=== PATIENT | male | born 1965 | race Caucasian/White ===

== ENCOUNTER 2018-11-20 19:57 | Inpatient (IN) | payer MEDICARE, MEDICAID ==
[2018-11-20 20:36] LABS: % BASOPHILS 0.4 % (0.0-2.0); % EOSINOPHILS 3.5 % (0.0-5.0); % MONOCYTES 7.5 % (2.0-10.0); % NEUTROPHILS 64.6 % (40.0-80.0); EOSINOPHILE ABSOLUTE 0.3 Th/cmm (0.1-0.4); HEMATOCRIT 44.7 % (41.0-60); LYMPHOCYTE ABSOLUTE 2.2 Th/cmm (1.5-3.0); MEAN CORPUSCULAR HEMOGLOBIN 30.9 pg (26.0-30.0); MEAN CORPUSCULAR HGB CONC 33.6 pg (28.0-36.0); MEAN PLATELET VOLUME 7.6 fl; MONOCYTE ABSOLUTE 0.7 Th/cmm (0.3-1.0); PLATELET COUNT 262 Th/cmm (150-400); RED BLOOD COUNT 4.86 Mil/cmm (4.30-5.70); RED CELL DISTRIBUTION WIDTH 14.1 % (11.5-20.0); WHITE BLOOD COUNT 9.2 Th/cmm (4.8-10.8)
[2018-11-20 20:52] LABS: ACETAMINOPHEN < 10.0 ug/mL (10.0-30.0); ALB/GLOB RATIO 1.3 (1.0-1.8); ALBUMIN 3.8 gm/dL (4.2-5.5); ALKALINE PHOSPHATASE 108 U/L (34-104); ANION GAP 9.6 (7.0-16.0); BILIRUBIN,TOTAL 0.4 mg/dL (0.3-1.0); BUN - UREA NITROGEN 17 mg/dL (7-25); CALCIUM SERUM 10.7 mg/dL (8.6-10.3); CARBON DIOXIDE 28.5 mEq/L (21.0-31.0); CHLORIDE 104 mEq/L (98-107); CHOLESTEROL 170 mg/dL (<200); CREATININE - SERUM 0.9 mg/dL (0.7-1.3); GFR AFRICAN-AMERICAN > 60.0 ml/min (>90); GFR NON AFRICAN-AMERICAN > 60.0 ml/min; GLUCOSE 126 mg/dL (70-105); HDL -HIGH DENSITY LIPOPROTEIN 38 mg/dL (23-92); POTASSIUM SERUM 4.1 mEq/L (3.5-5.1); SALICYLATES (ASPIRIN) < 25.0 mg/L (30.0-100.0); SGOT 41 U/L (13-39); SGPT/ALT 83 U/L (7-52); SODIUM SERUM 138 mEq/L (136-145); TOTAL PROTEIN,SERUM 6.8 gm/dL (6.0-8.3); TRIGLYCERIDES 181 mg/dL (<150)
[2018-11-20 21:07] LABS: URINE SOURCE RANDOM
[2018-11-20 21:10] LABS: URINE BILIRUBIN NEGATIVE (NEGATIVE); URINE BLOOD NEGATIVE (NEGATIVE); URINE GLUCOSE (UA) NEGATIVE (NEGATIVE); URINE KETONE NEGATIVE (NEGATIVE); URINE LEUKOCYTE ESTERASE NEGATIVE (NEGATIVE); URINE NITRATE NEGATIVE (NEGATIVE); URINE PROTEIN NEGATIVE (NEGATIVE); URINE UROBILINOGEN 0.2 E.U./dL (0.2 - 1.0)
[2018-11-20 21:46] LABS: AMPHETAMINE URINE NEGATIVE (NEGATIVE); BARBITURATES URINE NEGATIVE (NEGATIVE); COCAINE METABOLITE QUAL URINE NEGATIVE (NEGATIVE); METHAMPHETAMINES QUAL URINE NEGATIVE (NEGATIVE); PHENCYCLIDINE (PCP) URINE NEGATIVE (NEGATIVE)
[2018-11-20 21:47] LABS: BENZODIAZEPINES QUAL URINE NEGATIVE (NEGATIVE); CANNABINOID THC NEGATIVE (NEGATIVE); METHADONE URINE NEGATIVE (NEGATIVE); OPIATES (MORPHINE) QUAL. URINE NEGATIVE (NEGATIVE); TRICYCLICS (TCA) QUAL. URINE POSITIVE (NEGATIVE)
[2018-11-20 21:58] LABS: URINE CLARITY CLEAR (CLEAR); URINE COLOR YELLOW; URINE MICROSCOPIC INDICATED? NO
--- NOTE | 2018-11-20 22:25 | ED Physician Chart ---
ED Chief Complaint/HPI - Patient Information Date Seen:: 11/20/18 Time Seen:: 20:00 Chief Complaint:: Agitation History of Present Illness:: onset x 3 days of agitation and aggressive behavior; no report of trauma, LOC, ALOC, AMS, H/As, S/T, neck pain, C/P, SOB, cough, SIs, Abd. Pain, A/N/V/D/C, fever, chills, or urinary s/s Allergies:: Allergies Allergy/AdvReac Type Severity Reaction Status Date / Time No Known Allergies Allergy Verified 11/20/18 20:05 Vitals:: Vital Signs - 8 hr 11/20/18 20:00 Temp 98.0 F HR 90 RR 16 BP 136/73 O2 Sat % 99 Historian:: Patient, EMS Review:: Nurse's Note Reviewed, Old Chart Reviewed, EMS run form Reviewed ED Review of Systems - Review of Systems General/Constitutional: No fever, No chills, No weight loss, No weakness, No diaphoresis, No edema, No loss of appetite Skin: No skin lesions, No rash, No bruising Head: No headache, No light-headedness Eyes: No loss of vision, No pain, No diplopia ENT: No earache, No nasal drainage, No sore throat, No tinnitus Neck: No neck pain, No swelling, No thyromegaly, No stiffness, No mass noted Cardio Vascular: No chest pain, No palpitations, No PND, No orthopnea, No edema Pulmonary: No SOB, No cough, No sputum, No wheezing GI: No nausea, No vomiting, No diarrhea, No pain, No melena, No hematochezia, No constipation, No hematemesis G/U: No dysuria, No frequency, No hematuria, No nacturia Musculoskeletal: No bone or joint pain, No back pain, No muscle pain Endocrine: No polyuria, No polydipsia Psychiatric: Prior psych history, Depression, Anxiety, No suicidal ideation, No homicidal ideation, Auditory hallucination, No visual hallucination Hematopoietic: No bruising, No lymphadenopathy Allergic/Immuno: No urticaria, No angioedema Neurological: No syncope, No focal symptoms, No weakness, No paresthesia, No headache, No seizure, No dizziness, No confusion, No vertigo ED Past Medical History - Past Medical History Obtainable: Yes Past Medical History: HTN, Arthritis Family History: HTN Social History: Smoker, Alcohol, Illicit Drug Use, Single, Care Facility Surgical History: other (Knee Surgery) Psychiatricy History: Schizophrenia, Bipolar Medication: Reviewed ED Physical Exam - Physical Examination General/Constitutional: Awake, Well-developed, well-nourished, Alert, No distress, GCS 15, Non-toxic appearing, Ambulatory Head: Atraumatic Eyes: Lids, conjuctiva normal, PERRL, EOMI Skin: Nl inspection, No rash, No skin lesions, No ecchymosis, Well hydrated, No lymphadenopathy ENMT: External ears, nose nl, TM canals nl, Nasal exam nl, Lips, teeth, gums nl , Oropharynx nl, Tonsils nl Neck: Nontender, Full ROM w/o pain, No JVD, No nuchal rigidity, No bruit, No mass, No stridor Respiratory: Nl effort/Exclusion, Clear to Auscultation, No Wheeze/Rhonchi/Rales Cardio Vascular: RRR, No murmur, gallop, rubs, NL S1 S2, Carotid/Femoral/Distal pulses equal bilaterally GI: No tenderness/rebounding/guarding, No organomegaly, No hernia, Normal BS's, Nondistended, No mass/bruits, No McBurney tenderness Other GI comments:: no pulsatile masses : No CVA tenderness Extremities: No tenderness or effusion, Full ROM, normal strength in all extremities, No edema, Normal digits & nails Neuro/Psych: Alert/oriented, DTR's symmetric, Normal sensory exam, Normal motor strength, Judgement/insight normal, Mood normal, Normal gait, No focal deficits Other Neuro/Psych comments:: + Psychomotor Agitation; no SIs; Mood/Affect: Labile Misc: Normal back, No paraspinal tenderness ED Labs/Radiology/EKG Results - Lab Results Results: Laboratory Tests 11/20/18 11/20/18 11/20/18 20:26 20:26 20:26 WBC 9.2 RBC 4.86 Hgb 15.0 Hct 44.7 MCV 92.0 MCH 30.9 H MCHC Differential 33.6 RDW 14.1 Plt Count 262 MPV 7.6 Neutrophils % 64.6 Lymphocytes % 24.0 Monocytes % 7.5 Eosinophils % 3.5 Basophils % 0.4 Sodium 138 Potassium 4.1 Chloride 104 Carbon Dioxide 28.5 Anion Gap 9.6 BUN 17 Creatinine 0.9 Est GFR ( Amer) > 60.0 Est GFR (Non-Af Amer) > 60.0 BUN/Creatinine Ratio 18.9 Glucose 126 H Calcium 10.7 H Total Bilirubin 0.4 AST 41 H ALT 83 H Alkaline Phosphatase 108 H Troponin I Total Protein 6.8 Albumin 3.8 L Globulin 3.0 Albumin/Globulin Ratio 1.3 Triglycerides 181 H Cholesterol 170 LDL Cholesterol Direct 124 HDL Cholesterol 38 TSH 2.21 Urine Source Urine Color Urine Clarity Urine pH Ur Specific [place] Urine Protein Urine Glucose (UA) Urine Ketones Urine Blood Urine Nitrate Urine Bilirubin Urine Urobilinogen Ur Leukocyte Esterase Salicylates < 25.0 L Urine Opiates Screen Urine Methadone Screen Acetaminophen < 10.0 L Ur Barbiturates Screen Ur Tricyclics Screen Ur Phencyclidine Scrn Amphetamines Screen U Methamphetamines Scrn U Benzodiazepines Scrn U Cocaine Metab Screen U Cannabinoids Screen Ethyl Alcohol < 10 11/20/18 11/20/18 11/20/18 20:26 21:00 21:00 WBC RBC Hgb Hct MCV MCH MCHC Differential RDW Plt Count MPV Neutrophils % Lymphocytes % Monocytes % Eosinophils % Basophils % Sodium Potassium Chloride Carbon Dioxide Anion Gap BUN Creatinine Est GFR ( Amer) Est GFR (Non-Af Amer) BUN/Creatinine Ratio Glucose Calcium Total Bilirubin AST ALT Alkaline Phosphatase Troponin I 0.01 Total Protein Albumin Globulin Albumin/Globulin Ratio Triglycerides Cholesterol LDL Cholesterol Direct HDL Cholesterol TSH Urine Source RANDOM Urine Color YELLOW Urine Clarity CLEAR Urine pH 7.0 Ur Specific [place] 1.015 Urine Protein NEGATIVE Urine Glucose (UA) NEGATIVE Urine Ketones NEGATIVE Urine Blood NEGATIVE Urine Nitrate NEGATIVE Urine Bilirubin NEGATIVE Urine Urobilinogen 0.2 Ur Leukocyte Esterase NEGATIVE Salicylates Urine Opiates Screen NEGATIVE Urine Methadone Screen NEGATIVE Acetaminophen Ur Barbiturates Screen NEGATIVE Ur Tricyclics Screen POSITIVE H Ur Phencyclidine Scrn NEGATIVE Amphetamines Screen NEGATIVE U Methamphetamines Scrn NEGATIVE U Benzodiazepines Scrn NEGATIVE U Cocaine Metab Screen NEGATIVE U Cannabinoids Screen NEGATIVE Ethyl Alcohol Comments:: Reviewed - EKG Interpretations EKG Time:: 20:59 Rate & Rhythm: 96; NSR Comments:: non-specific st-t changes ED Septic Shock - . Is Septic Shock (SBP<90, OR Lactate>4 mmol\L) present?: No - <6hrs of presentation: Vital Signs: Vital Signs - 8 hr 11/20/18 20:00 Temp 98.0 F HR 90 RR 16 BP 136/73 O2 Sat % 99 ED Reassessment (Disposition) - Reassessment Reassessment Condition:: Improved - Diagnosis Diagnosis:: Agitation; Medical Clearance; Psychosis; Depression; Bipolar Disorder; Schizophrenia; Schizo-Affective Disorder - Aftercare/Follow up Instructions Aftercare/Follow-Up Instructions:: Counseled pt regarding lab results/diagnosis & need follow up, Counseled pt & family regarding lab results/diagnosis & need follow up - Patient Disposition Discharge/Transfer:: Acute Care w/in this hosp Admitted to:: [facility] Condition at Disposition:: Stable, Improved
[2018-11-20 22:40] VITALS: BP 132/92
[2018-11-20] MEDS ORDERED: Maalox 30 mL Cup PO PRN (22:45)
[2018-11-20] MEDS ORDERED: Magnesium Hydroxide (MOM) 30 mL UDC PO PRN (22:45)
[2018-11-20] MEDS ORDERED: LITHIUM CARBONATE 600 MG PO SCH (23:45)
[2018-11-20] MEDS ORDERED: Ipratropium Neb 0.5 mg/2.5 mL UD HHN PRN (23:50)
[2018-11-20] MEDS ORDERED: Albuterol Nebulizer 2.5mg/3mL HHN PRN (23:50)
[2018-11-20] MEDS ORDERED: guaiFENesin 200 MG/10 ML UDC PO PRN (23:50)
[2018-11-21] MEDS ORDERED: LITHIUM CARBONATE 600 MG PO SCH (09:00)
--- NOTE | 2018-11-21 12:13 | Psychiatric Evaluation ---
DATE OF SERVICE: 11/20/2018 IDENTIFYING DATA: The patient is a 53-year-old male, a resident of [facility]. Information was obtained by directly interviewing the patient as well as reviewing the admission papers and they are reliable. JUSTIFICATION OF HOSPITALIZATION: The patient is admitted over here for acute psychosis and agitation. CHIEF COMPLAINT: "I need to go back to [facility]." HISTORY OF PRESENT ILLNESS: This is the one of multiple psychiatric hospitalizations for this patient who is reported to have been recently hospitalized at [facility]. The patient is reported to have been having mood swings and psychiatric problems for the past 20 plus years. The patient on the day of the hospitalization has been reported to have been screaming and yelling and has been very disorganized and is also reported to be getting agitated and could not be contained, and hence, the patient has to be referred over here. PAST PSYCHIATRIC HISTORY: The patient is reported to have been hospitalized at [facility] recently. MEDICAL HISTORY AND PHYSICAL EXAMINATION: Requested to be done by Dr. Lloyd. Significant for bilateral ____ placement and history of back pain. SUBSTANCE ABUSE HISTORY: None. PHYSICAL OR SEXUAL ABUSE HISTORY: None. LEGAL PROBLEMS: None at this time. CURRENT MEDICATIONS: Include lithium and Seroquel. SOCIAL HISTORY: The patient is a resident of the [facility] facility, [facility]. STRENGTH AND ASSETS: The patient is motivated. MENTAL STATUS EXAMINATION: The patient is 53 years old, looking his stated age, superficially cooperative. Eye contact is poor. Mood is noted to be irritable. Affect is constricted. The patient is alert and oriented to time, place and person. The patient's short-term memory is noted to be intact. The patient's long-term memory is also noted to be intact. The patient is able to give his date of and the place where he has been staying at. The patient however has been getting easily agitated when I am asking these questions. The patient has paranoia, but denies any command hallucinations at this time. The patient is downplaying his reason for being hospitalized. The patient's behavior is a clear danger to self and others. DIAGNOSTIC IMPRESSION: AXIS I: Schizoaffective disorder. History of marijuana abuse. AXIS II: None. AXIS III: As per Dr. Lloyd. IMMEDIATE TREATMENT PLAN: The patient is going to be observed on inpatient unit. Provided with supportive psychotherapy. The patient is going to be closely monitored. Encouraged to verbalize the concerns. The patient is going to be continued on Seroquel and lithium carbonate. ESTIMATED LENGTH OF STAY: 3-5 days. DISCHARGE CRITERIA: When he no longer a threat to self or others and be able to cope up with the stress. JOB# [id number]
--- NOTE | 2018-11-21 16:35 | History & Physical ---
ADMIT DATE: 11/21/2018 CHIEF COMPLAINT: Admitted for inpatient psych. HISTORY OF PRESENT ILLNESS: This is a 53-year-old male, history of chronic low back pain, osteoarthritis, psych disorder, admitted from nursing facility under the service of Dr. Ceballos. The patient complains of back pain and leg pain. PAST MEDICAL HISTORY: As mentioned in history present illness. PAST SURGICAL HISTORY: Denies surgeries in the past. ALLERGIES: No known drug allergies. MEDICATIONS: The patient is on lithium and Seroquel. FAMILY HISTORY: Denies diabetes or coronary artery disease. SOCIAL HISTORY: Smokes on occasions, drinks on occasion. He is a smoker. 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 Single with one child. REVIEW OF SYSTEMS: GENERAL: Complains not feeling well, complains of pain. HEAD, EYES, EARS, NOSE, AND THROAT: No blurred vision. LUNGS: No diagnosis of COPD or asthma. HEART: Denies hypertension or coronary artery disease. ABDOMEN: No nausea, vomiting, pain. GENITOURINARY: The patient denies any increased dysuria. NEUROLOGIC: No headache, seizure or syncope. EXTREMITIES: Have low back pain. PHYSICAL EXAMINATION: VITAL SIGNS: Blood pressure 124/81, respiration 20, pulse 79, and temperature 98.1. GENERAL: Mildly obese middle-aged male, in no acute distress, in a wheelchair. NECK: Supple. No mass. LUNGS: Equal breath sounds, otherwise clear to auscultation. HEART: Regular rate and rhythm without appreciable murmurs. ABDOMEN: Soft, nontender. Positive bowel sounds. ____ LABORATORY DATA: Showed WBC 9, hemoglobin 15, platelets 262. Sodium 138, potassium 4.1, BUN 74, creatinine 0.9, blood sugar 126, AST and ALT 41 and 83 respectively. Alkaline phosphatase 108. Albumin 3.8, triglyceride 181. Positive tricyclics. ASSESSMENT AND PLAN: 1. Hyperglycemia. Liver function tests, hypercalcemia, low back pain, chronic pain syndrome, osteoarthritis, psych disorder. 2. Obesity. We will continue the on Neurontin. We will treat the patient with nonsteroidal anti-inflammatory drugs, we will try to avoid narcotic medication, the patient insisting, we will see if it is okay with Psychiatry. We will continue to monitor the patient closely. JOB# [id number]
[2018-11-21] MEDS: Hydrocodone/APAP 5mg/325mg Tab PO PRN (23:39)
--- NOTE | 2018-11-22 13:14 | Internal Medicine Prog Note ---
Internal Medicine Subjective - Subjective Patient seen and examined:: with staff, chart reviewed Patient is:: awake, verbal, interactive, in wheelchair Patient Complaints of:: LBP, unable to sleep Per staff patient has:: no adverse event, no episodes of fall, agitated, tolerating meds Internal Medicine Objective - Results Result Diagrams: 11/20/18 20:26 11/20/18 20:26 Recent Labs: Laboratory Last Values WBC 9.2 Th/cmm (4.8-10.8) 11/20/18 20: RBC 4.86 Mil/cmm (4.30-5.70) 11/20/18 20:26 Hgb 15.0 gm/dL (12-16) 11/20/18 20: Hct 44.7 % (41.0-60) 11/20/18 20: MCV 92.0 fl (80-99) 11/20/18 20: MCH 30.9 pg (26.0-30.0) H 11/20/18 20: MCHC Differential 33.6 pg (28.0-36.0) 11/20/18 20: RDW 14.1 % (11.5-20.0) 11/20/18 20: Plt Count 262 Th/cmm (150-400) 11/20/18 20: MPV 7.6 fl 11/20/18 20: Neutrophils % 64.6 % (40.0-80.0) 11/20/18 20: Lymphocytes % 24.0 % (20.0-50.0) 11/20/18 20: Monocytes % 7.5 % (2.0-10.0) 11/20/18 20: Eosinophils % 3.5 % (0.0-5.0) 11/20/18 20: Basophils % 0.4 % (0.0-2.0) 11/20/18 20:26 Sodium 138 mEq/L (136-145) 11/20/18 20:26 Potassium 4.1 mEq/L (3.5-5.1) 11/20/18 20: Chloride 104 mEq/L (98-107) 11/20/18 20: Carbon Dioxide 28.5 mEq/L (21.0-31.0) 11/20/18 20:26 Anion Gap 9.6 (7.0-16.0) 11/20/18 20:26 BUN 17 mg/dL (7-25) 11/20/18 20:26 Creatinine 0.9 mg/dL (0.7-1.3) 11/20/18 20:26 Est GFR ( Amer) > 60.0 ml/min (>90) 11/20/18 20:26 Est GFR (Non-Af Amer) > 60.0 ml/min 11/20/18 20:26 BUN/Creatinine Ratio 18.9 11/20/18 20:26 Glucose 126 mg/dL (70-105) H 11/20/18 20:26 Calcium 10.7 mg/dL (8.6-10.3) H 11/20/18 20:26 Total Bilirubin 0.4 mg/dL (0.3-1.0) 11/20/18 20:26 AST 41 U/L (13-39) H 11/20/18 20:26 ALT 83 U/L (7-52) H 11/20/18 20:26 Alkaline Phosphatase 108 U/L (34-104) H 11/20/18 20:26 Troponin I 0.01 ng/mL (0.01-0.05) 11/20/18 20:26 Total Protein 6.8 gm/dL (6.0-8.3) 11/20/18 20:26 Albumin 3.8 gm/dL (4.2-5.5) L 11/20/18 20:26 Globulin 3.0 gm/dL 11/20/18 20:26 Albumin/Globulin Ratio 1.3 (1.0-1.8) 11/20/18 20:26 Triglycerides 181 mg/dL (<150) H 11/20/18 20:26 Cholesterol 170 mg/dL (<200) 11/20/18 20:26 LDL Cholesterol Direct 124 mg/dL (75-193) 11/20/18 20:26 HDL Cholesterol 38 mg/dL (23-92) 11/20/18 20:26 TSH 2.21 uIU/ml (0.34-5.60) 11/20/18 20:26 Urine Source RANDOM 11/20/18 21:00 Urine Color YELLOW 11/20/18 21:00 Urine Clarity CLEAR (CLEAR) 11/20/18 21:00 Urine pH 7.0 (4.6 - 8.0) 11/20/18 21:00 Ur Specific [place] 1.015 (1.005-1.030) 11/20/18 21:00 Urine Protein NEGATIVE mg/dL (NEGATIVE) 11/20/18 21:00 Urine Glucose (UA) NEGATIVE mg/dL (NEGATIVE) 11/20/18 21:00 Urine Ketones NEGATIVE mg/dL (NEGATIVE) 11/20/18 21:00 Urine Blood NEGATIVE (NEGATIVE) 11/20/18 21:00 Urine Nitrate NEGATIVE (NEGATIVE) 11/20/18 21:00 Urine Bilirubin NEGATIVE (NEGATIVE) 11/20/18 21:00 Urine Urobilinogen 0.2 E.U./dL (0.2 - 1.0) 11/20/18 21:00 Ur Leukocyte Esterase NEGATIVE (NEGATIVE) 11/20/18 21:00 Salicylates < 25.0 mg/L (30.0-100.0) L 11/20/18 20:26 Urine Opiates Screen NEGATIVE (NEGATIVE) 11/20/18 21:00 Urine Methadone Screen NEGATIVE (NEGATIVE) 11/20/18 21:00 Acetaminophen < 10.0 ug/mL (10.0-30.0) L 11/20/18 20:26 Ur Barbiturates Screen NEGATIVE (NEGATIVE) 11/20/18 21:00 Ur Tricyclics Screen POSITIVE (NEGATIVE) H 11/20/18 21:00 Ur Phencyclidine Scrn NEGATIVE (NEGATIVE) 11/20/18 21:00 Amphetamines Screen NEGATIVE (NEGATIVE) 11/20/18 21:00 U Methamphetamines Scrn NEGATIVE (NEGATIVE) 11/20/18 21:00 U Benzodiazepines Scrn NEGATIVE (NEGATIVE) 11/20/18 21:00 U Cocaine Metab Screen NEGATIVE (NEGATIVE) 11/20/18 21:00 U Cannabinoids Screen NEGATIVE (NEGATIVE) 11/20/18 21:00 Ethyl Alcohol < 10 mg/dL (0-10) 11/20/18 20:26 RPR NONREACTIVE (NONREACTIVE) 11/20/18 20:26 - Physical Exam Vitals and I&O: Vital Signs Temp 98.2 F 11/22/18 06:31 Pulse 89 11/22/18 07:27 Resp 20 11/22/18 07:27 BP 110/66 11/22/18 06:31 Pulse Ox 96 11/22/18 07:27 Intake & Output 11/21/18 11/22/18 11/22/18 18:59 06:59 18:59 Intake Total 900 120 Balance 900 120 Intake: Oral 900 120 Other: # Voids 3 3 # Bowel Movements 1 Active Medications: Current Medications Acetaminophen (Tylenol) 650 mg PO Q4H PRN PRN Reason: Pain Or Fever above 101 Stop: 01/19/19 23:49 Last Admin: 11/21/18 10:58 Dose: 650 mg Acetaminophen/Hydrocodone Bitart ([place] 5mg/325mg) 1 tab PO Q8H PRN PRN Reason: Pain (Severe) Stop: 01/20/19 15:59 Last Admin: 11/21/18 23:39 Dose: 1 tab Al Hydrox/Mg Hydrox/Simethicone (Maalox) 30 ml PO Q6H PRN PRN Reason: Dyspepsia Stop: 01/19/19 22:44 Albuterol Sulfate (Albuterol 2.5mg/3ml Neb Ud) 2.5 mg HHN Q2HRT PRN PRN Reason: Shortness of Breath or Wheeze Stop: 01/19/19 23:49 Gabapentin (Neurontin) 300 mg PO BID WALTER Stop: 01/20/19 08:59 Last Admin: 11/22/18 09:16 Dose: 300 mg Guaifenesin (Robitussin) 200 mg PO Q4HR PRN PRN Reason: Cough or Congestion Stop: 01/19/19 23:49 Last Admin: 11/21/18 01:43 Dose: 200 mg Ipratropium [place] (Atrovent Neb 0.5mg/2.5ml) 0.5 mg HHN Q2HRT PRN PRN Reason: Shortness of Breath or Wheeze Stop: 01/19/19 23:49 [place] Carbonate (Eskalith) 600 mg PO BID WALTER Stop: 01/20/19 08:59 Last Admin: 11/22/18 09:17 Dose: 600 mg Lorazepam (Ativan) 1 mg PO Q6H PRN; Protocol PRN Reason: Anxiety/Agitation Stop: 01/19/19 22:44 Last Admin: 11/20/18 23:59 Dose: 1 mg Magnesium Hydroxide (Milk Of Magnesia) 30 ml PO HS PRN PRN Reason: Constipation Stop: 01/19/19 22:44 Quetiapine Fumarate (Seroquel) 800 mg PO DAILY WALTER; Protocol Stop: 01/20/19 08:59 Last Admin: 11/22/18 09:16 Dose: 800 mg Zolpidem Tartrate (Ambien) 5 mg PO HS PRN PRN Reason: Insomnia Stop: 01/19/19 22:44 Last Admin: 11/21/18 21:06 Dose: 5 mg General: alert, obese, appears older, NAD HEENT: NC/AT, PERRLA, EOMI Neck: Supple, No JVD, No thyromegaly Lungs: CTAB Cardiovascular: RRR, Normal S1, Normal S2 Abdomen: soft, non-tender, globular, positive bowel sound Extremities: excoriation Neurological: no change Internal Medicine Assmt/Plan - Assessment Assessment: ASSESSMENT AND PLAN: 1. Hyperglycemia. Liver function tests, hypercalcemia, low back pain, chronic pain syndrome, osteoarthritis, psych disorder. 2. Obesity. - Plan Plan: A. We will continue the on Neurontin. We will treat the patient with nonsteroidal anti-inflammatory drugs, we will try to avoid narcotic medication, the patient insisting, we will see if it is okay with Psychiatry. We will continue to monitor the patient closely.
[2018-11-22] MEDS: Hydrocodone/APAP 5mg/325mg Tab PO PRN (20:55)
--- NOTE | 2018-11-23 08:27 | Progress Notes ---
DATE: 11/22/2018 SUBJECTIVE: Staff was spoken to. The patient is interviewed. Mood is noted to be irritable. Affect is constricted. Insight and judgment are noted to be still impaired. Impulse control is noted to be limited. Coping skills are noted to be limited. The patient has been having difficult time to cope with the stress. No side effects. The medications are reported. The patient has been having difficult time to cope with the stress and has been getting easily irritable and angry. ASSESSMENT: The patient is still impulsive. PLAN: To continue the patient with the supportive therapy and continue the gabapentin and lithium and Seroquel and follow the patient up. JOB# [id number]
--- NOTE | 2018-11-23 11:07 | Internal Medicine Prog Note ---
Internal Medicine Subjective - Subjective Service Date: 11/23/18 Patient is:: awake, verbal, interactive, in wheelchair Patient Complaints of:: LBP, unable to sleep Per staff patient has:: no adverse event, no episodes of fall, agitated, tolerating meds Internal Medicine Objective - Results Result Diagrams: 11/20/18 20:26 11/20/18 20:26 Recent Labs: Laboratory Last Values WBC 9.2 Th/cmm (4.8-10.8) 11/20/18 20: RBC 4.86 Mil/cmm (4.30-5.70) 11/20/18 20:26 Hgb 15.0 gm/dL (12-16) 11/20/18 20: Hct 44.7 % (41.0-60) 11/20/18 20: MCV 92.0 fl (80-99) 11/20/18 20: MCH 30.9 pg (26.0-30.0) H 11/20/18 20: MCHC Differential 33.6 pg (28.0-36.0) 11/20/18 20: RDW 14.1 % (11.5-20.0) 11/20/18 20: Plt Count 262 Th/cmm (150-400) 11/20/18 20:26 MPV 7.6 fl 11/20/18 20: Neutrophils % 64.6 % (40.0-80.0) 11/20/18 20: Lymphocytes % 24.0 % (20.0-50.0) 11/20/18 20: Monocytes % 7.5 % (2.0-10.0) 11/20/18 20: Eosinophils % 3.5 % (0.0-5.0) 11/20/18 20: Basophils % 0.4 % (0.0-2.0) 11/20/18 20:26 Sodium 138 mEq/L (136-145) 11/20/18 20:26 Potassium 4.1 mEq/L (3.5-5.1) 11/20/18 20:26 Chloride 104 mEq/L (98-107) 11/20/18 20:26 Carbon Dioxide 28.5 mEq/L (21.0-31.0) 11/20/18 20:26 Anion Gap 9.6 (7.0-16.0) 11/20/18 20:26 BUN 17 mg/dL (7-25) 11/20/18 20:26 Creatinine 0.9 mg/dL (0.7-1.3) 11/20/18 20:26 Est GFR ( Amer) > 60.0 ml/min (>90) 11/20/18 20:26 Est GFR (Non-Af Amer) > 60.0 ml/min 11/20/18 20:26 BUN/Creatinine Ratio 18.9 11/20/18 20:26 Glucose 126 mg/dL (70-105) H 11/20/18 20:26 Calcium 10.7 mg/dL (8.6-10.3) H 11/20/18 20:26 Total Bilirubin 0.4 mg/dL (0.3-1.0) 11/20/18 20:26 AST 41 U/L (13-39) H 11/20/18 20:26 ALT 83 U/L (7-52) H 11/20/18 20:26 Alkaline Phosphatase 108 U/L (34-104) H 11/20/18 20:26 Troponin I 0.01 ng/mL (0.01-0.05) 11/20/18 20:26 Total Protein 6.8 gm/dL (6.0-8.3) 11/20/18 20:26 Albumin 3.8 gm/dL (4.2-5.5) L 11/20/18 20:26 Globulin 3.0 gm/dL 11/20/18 20:26 Albumin/Globulin Ratio 1.3 (1.0-1.8) 11/20/18 20:26 Triglycerides 181 mg/dL (<150) H 11/20/18 20:26 Cholesterol 170 mg/dL (<200) 11/20/18 20:26 LDL Cholesterol Direct 124 mg/dL (75-193) 11/20/18 20:26 HDL Cholesterol 38 mg/dL (23-92) 11/20/18 20:26 TSH 2.21 uIU/ml (0.34-5.60) 11/20/18 20:26 Urine Source RANDOM 11/20/18 21:00 Urine Color YELLOW 11/20/18 21:00 Urine Clarity CLEAR (CLEAR) 11/20/18 21:00 Urine pH 7.0 (4.6 - 8.0) 11/20/18 21:00 Ur Specific [place] 1.015 (1.005-1.030) 11/20/18 21:00 Urine Protein NEGATIVE mg/dL (NEGATIVE) 11/20/18 21:00 Urine Glucose (UA) NEGATIVE mg/dL (NEGATIVE) 11/20/18 21:00 Urine Ketones NEGATIVE mg/dL (NEGATIVE) 11/20/18 21:00 Urine Blood NEGATIVE (NEGATIVE) 11/20/18 21:00 Urine Nitrate NEGATIVE (NEGATIVE) 11/20/18 21:00 Urine Bilirubin NEGATIVE (NEGATIVE) 11/20/18 21:00 Urine Urobilinogen 0.2 E.U./dL (0.2 - 1.0) 11/20/18 21:00 Ur Leukocyte Esterase NEGATIVE (NEGATIVE) 11/20/18 21:00 Salicylates < 25.0 mg/L (30.0-100.0) L 11/20/18 20:26 Urine Opiates Screen NEGATIVE (NEGATIVE) 11/20/18 21:00 Urine Methadone Screen NEGATIVE (NEGATIVE) 11/20/18 21:00 Acetaminophen < 10.0 ug/mL (10.0-30.0) L 11/20/18 20:26 Ur Barbiturates Screen NEGATIVE (NEGATIVE) 11/20/18 21:00 Ur Tricyclics Screen POSITIVE (NEGATIVE) H 11/20/18 21:00 Ur Phencyclidine Scrn NEGATIVE (NEGATIVE) 11/20/18 21:00 Amphetamines Screen NEGATIVE (NEGATIVE) 11/20/18 21:00 U Methamphetamines Scrn NEGATIVE (NEGATIVE) 11/20/18 21:00 U Benzodiazepines Scrn NEGATIVE (NEGATIVE) 11/20/18 21:00 U Cocaine Metab Screen NEGATIVE (NEGATIVE) 11/20/18 21:00 U Cannabinoids Screen NEGATIVE (NEGATIVE) 11/20/18 21:00 Ethyl Alcohol < 10 mg/dL (0-10) 11/20/18 20:26 RPR NONREACTIVE (NONREACTIVE) 11/20/18 20:26 - Physical Exam Vitals and I&O: Vital Signs Temp 99.4 F 11/23/18 05:28 Pulse 81 11/23/18 07:28 Resp 20 11/23/18 07:28 BP 136/94 11/23/18 05:28 Pulse Ox 97 11/23/18 07:28 Intake & Output 11/22/18 11/23/18 11/23/18 18:59 06:59 18:59 Intake Total 1000 120 Balance 1000 120 Intake: Oral 1000 120 Other: # Voids 4 3 # Bowel Movements 1 0 Active Medications: Current Medications Acetaminophen (Tylenol) 650 mg PO Q4H PRN PRN Reason: Pain Or Fever above 101 Stop: 01/19/19 23:49 Last Admin: 11/23/18 04:24 Dose: 650 mg Acetaminophen/Hydrocodone Bitart ([place] 5mg/325mg) 1 tab PO Q8H PRN PRN Reason: Pain (Severe) Stop: 01/20/19 15:59 Last Admin: 11/22/18 20:55 Dose: 1 tab Al Hydrox/Mg Hydrox/Simethicone (Maalox) 30 ml PO Q6H PRN PRN Reason: Dyspepsia Stop: 01/19/19 22:44 Albuterol Sulfate (Albuterol 2.5mg/3ml Neb Ud) 2.5 mg HHN Q2HRT PRN PRN Reason: Shortness of Breath or Wheeze Stop: 01/19/19 23:49 Gabapentin (Neurontin) 300 mg PO BID [facility]TER Stop: 01/20/19 08:59 Last Admin: 11/23/18 08:47 Dose: 300 mg Guaifenesin (Robitussin) 200 mg PO Q4HR PRN PRN Reason: Cough or Congestion Stop: 01/19/19 23:49 Last Admin: 11/21/18 01:43 Dose: 200 mg Ipratropium [place] (Atrovent Neb 0.5mg/2.5ml) 0.5 mg HHN Q2HRT PRN PRN Reason: Shortness of Breath or Wheeze Stop: 01/19/19 23:49 [place] Carbonate (Eskalith) 600 mg PO BID WALTER Stop: 01/20/19 08:59 Last Admin: 11/23/18 08:47 Dose: 600 mg Lorazepam (Ativan) 1 mg PO Q6H PRN; Protocol PRN Reason: Anxiety/Agitation Stop: 01/19/19 22:44 Last Admin: 11/20/18 23:59 Dose: 1 mg Magnesium Hydroxide (Milk Of Magnesia) 30 ml PO HS PRN PRN Reason: Constipation Stop: 01/19/19 22:44 Quetiapine Fumarate (Seroquel) 600 mg PO HS WALTER; Protocol Stop: 01/22/19 20:59 Zolpidem Tartrate (Ambien) 5 mg PO HS PRN PRN Reason: Insomnia Stop: 01/19/19 22:44 Last Admin: 11/22/18 23:28 Dose: 5 mg General: alert, obese, appears older, NAD HEENT: NC/AT, PERRLA, EOMI Neck: Supple, No JVD, No thyromegaly Lungs: CTAB Cardiovascular: RRR, Normal S1, Normal S2 Abdomen: soft, non-tender, globular, positive bowel sound Extremities: excoriation Neurological: no change Internal Medicine Assmt/Plan - Assessment Assessment: 1. Hyperglycemia. Liver function tests, hypercalcemia, low back pain, chronic pain syndrome, osteoarthritis, psych disorder. 2. Obesity. - Plan Plan: monitor glucose, sliding scale fall precautions continue current plan of care
--- NOTE | 2018-11-23 16:10 | Progress Notes ---
DATE: 11/23/2018 PSYCHIATRIC PROGRESS NOTE PROGRESS ON THE UNIT: Staff was spoken to. The patient is interviewed. Mood is noted to be irritable. Affect is constricted. Insight and judgment are noted to be still impaired. Impulse control is noted to be poor. Coping skills are noted to be very poor. The patient is stating that he has been getting Seroquel in the morning time and that is making him to be too sleepy and he wants to change it. Blood work has been reviewed and the patient's Seroquel has been changed to nighttime. The patient at this time is being closely monitored. Insight and judgment at this time are noted to be still impaired. Impulse control is noted to be poor. Mood swings are noted to be a major concern for the patient. The patient is being maintained on lithium; the patient is getting 600 mg twice a day of lithium. [place] level is going to be requested. ASSESSMENT: The patient is still having mood swings, agitation is a problem, and the patient is not ready to be discharged to a lower level of care. PLAN: To continue the patient with supportive therapy. Encouraged the patient to verbalize the concerns and follow the patient up with these medications that have been adjusted. JOB# [id number]
--- NOTE | 2018-11-24 02:01 | Consultation ---
DATE OF CONSULTATION: 11/22/2018 REFERRING PHYSICIAN: Jenn Silva MD TYPE OF CONSULTATION: Psychology. HISTORY OF PRESENT ILLNESS: The patient is a 53-year-old male. The patient is a resident of [facility]. The following is by review of the medical record and by the patient's self report. The patient is being admitted due to acute psychosis and agitation. Upon interview, the patient is reporting that he does not understand why he is being hospitalized and needs to go back to [facility]. According to record review, the patient had been recently hospitalized at [facility] and was reported to have had mood swings. The patient has a long history of psychiatric issues. Staff at the patient's facility reported that the patient has had screaming and yelling episodes and was unable to be contained. The patient was transferred here for stabilization. The patient denied any suicidal ideation, plan or intention at the time of this clinical interview. PAST MEDICAL HISTORY: Please see history and physical by Dr. Lloyd. PAST PSYCHIATRIC HISTORY: The patient has a recent hospitalization at [facility]. The patient has a history of multiple psychiatric hospitalizations. The patient has a history of schizoaffective disorder. The patient is under the care of Dr. Ceballos at his placement. SUBSTANCE ABUSE HISTORY: The patient admits that he has been a cannabis user for many years. The patient did not give the date of last use. The patient denied use of tobacco or illicit drug use. PSYCHOSOCIAL HISTORY: The patient is a resident of [facility]. The patient states no family members involved in his care. The patient states no specific hindu affiliation. The patient perseverated on recent medical issues. The patient did not report occupational or educational history. The patient denied any history of physical or sexual abuse. The patient denied any current legal problems. The patient is persistently asking what happened to his teeth. MENTAL STATUS EXAMINATION: The patient appears to be his stated age. The patient's attitude is cooperative. Eye contact is fair. Speech is spontaneous, but repetitive. Mood seems to be fluctuating. Affect is broad and animated. Thought process shows perseveration on medical issues as well as missing items and belongings. The patient denied auditory or visual hallucinations; however, the patient's thought process seems to be disorganized and fixated. The staff reports the patient's behavior is easily agitated and was exhibiting yelling episodes at the time of his admission. Impulse control is poor. Concentration is poor. Sensorium is alert and oriented to self and place. The patient was able to repeat 3 items given to him the second time. The patient was unable to recall 2 out of the 3 items after several minutes and with multiple hints. Memory is impaired for short term dimension. Long-term memory needs further evaluation. Immediate memory seems to be grossly intact. The patient did not participate in the interpretation of proverbs. Insight is poor. Judgment is compromised. DIAGNOSTIC IMPRESSION: AXIS I: Schizoaffective disorder. AXIS II: Deferred. AXIS III: Per Dr. Lloyd. TREATMENT PLAN: The patient has been seen by Dr. Silva for psychiatric evaluation and for the management of the patient's psychotropic medications. We will provide supportive psychotherapy to include reality orientation, differentiation and integration. We will provide de-escalation and limit setting. We will encourage the patient to demonstrate emotional and self regulation and to verbalize his concerns versus acting out and yelling. We will provide coping strategies for chronic severe mental illness. We will provide motivational enhancement for the patient to become compliant and stay compliant with all aspects of his care and treatment. Thank you, Dr. Silva, for this consult and the opportunity to participate in this patient's care. [facility]# [id number] [place]
--- NOTE | 2018-11-24 12:35 | Internal Medicine Prog Note ---
Internal Medicine Subjective - Subjective Service Date: 11/24/18 Patient is:: awake, verbal, interactive, in wheelchair Patient Complaints of:: LBP Per staff patient has:: no adverse event, no episodes of fall, agitated, tolerating meds Internal Medicine Objective - Results Result Diagrams: 11/20/18 20:26 11/20/18 20: Recent Labs: Laboratory Last Values WBC 9.2 Th/cmm (4.8-10.8) 11/20/18 20: RBC 4.86 Mil/cmm (4.30-5.70) 11/20/18 20: Hgb 15.0 gm/dL (12-16) 11/20/18 20: Hct 44.7 % (41.0-60) 11/20/18 20: MCV 92.0 fl (80-99) 11/20/18 20: MCH 30.9 pg (26.0-30.0) H 11/20/18 20: MCHC Differential 33.6 pg (28.0-36.0) 11/20/18 20: RDW 14.1 % (11.5-20.0) 11/20/18 20: Plt Count 262 Th/cmm (150-400) 11/20/18 20: MPV 7.6 fl 11/20/18 20: Neutrophils % 64.6 % (40.0-80.0) 11/20/18 20: Lymphocytes % 24.0 % (20.0-50.0) 11/20/18 20: Monocytes % 7.5 % (2.0-10.0) 11/20/18 20: Eosinophils % 3.5 % (0.0-5.0) 11/20/18 20: Basophils % 0.4 % (0.0-2.0) 11/20/18 20: Sodium 138 mEq/L (136-145) 11/20/18 20: Potassium 4.1 mEq/L (3.5-5.1) 11/20/18 20: Chloride 104 mEq/L (98-107) 11/20/18 20: Carbon Dioxide 28.5 mEq/L (21.0-31.0) 11/20/18 20: Anion Gap 9.6 (7.0-16.0) 11/20/18 20:26 BUN 17 mg/dL (7-25) 11/20/18 20:26 Creatinine 0.9 mg/dL (0.7-1.3) 11/20/18 20:26 Est GFR ( Amer) > 60.0 ml/min (>90) 11/20/18 20:26 Est GFR (Non-Af Amer) > 60.0 ml/min 11/20/18 20:26 BUN/Creatinine Ratio 18.9 11/20/18 20:26 Glucose 126 mg/dL (70-105) H 11/20/18 20:26 Calcium 10.7 mg/dL (8.6-10.3) H 11/20/18 20:26 Total Bilirubin 0.4 mg/dL (0.3-1.0) 11/20/18 20:26 AST 41 U/L (13-39) H 11/20/18 20:26 ALT 83 U/L (7-52) H 11/20/18 20:26 Alkaline Phosphatase 108 U/L (34-104) H 11/20/18 20:26 Troponin I 0.01 ng/mL (0.01-0.05) 11/20/18 20:26 Total Protein 6.8 gm/dL (6.0-8.3) 11/20/18 20:26 Albumin 3.8 gm/dL (4.2-5.5) L 11/20/18 20:26 Globulin 3.0 gm/dL 11/20/18 20:26 Albumin/Globulin Ratio 1.3 (1.0-1.8) 11/20/18 20:26 Triglycerides 181 mg/dL (<150) H 11/20/18 20:26 Cholesterol 170 mg/dL (<200) 11/20/18 20:26 LDL Cholesterol Direct 124 mg/dL (75-193) 11/20/18 20:26 HDL Cholesterol 38 mg/dL (23-92) 11/20/18 20:26 TSH 2.21 uIU/ml (0.34-5.60) 11/20/18 20:26 Urine Source RANDOM 11/20/18 21:00 Urine Color YELLOW 11/20/18 21:00 Urine Clarity CLEAR (CLEAR) 11/20/18 21:00 Urine pH 7.0 (4.6 - 8.0) 11/20/18 21:00 Ur Specific [place] 1.015 (1.005-1.030) 11/20/18 21:00 Urine Protein NEGATIVE mg/dL (NEGATIVE) 11/20/18 21:00 Urine Glucose (UA) NEGATIVE mg/dL (NEGATIVE) 11/20/18 21:00 Urine Ketones NEGATIVE mg/dL (NEGATIVE) 11/20/18 21:00 Urine Blood NEGATIVE (NEGATIVE) 11/20/18 21:00 Urine Nitrate NEGATIVE (NEGATIVE) 11/20/18 21:00 Urine Bilirubin NEGATIVE (NEGATIVE) 11/20/18 21:00 Urine Urobilinogen 0.2 E.U./dL (0.2 - 1.0) 11/20/18 21:00 Ur Leukocyte Esterase NEGATIVE (NEGATIVE) 11/20/18 21:00 Salicylates < 25.0 mg/L (30.0-100.0) L 11/20/18 20:26 Urine Opiates Screen NEGATIVE (NEGATIVE) 11/20/18 21:00 Urine Methadone Screen NEGATIVE (NEGATIVE) 11/20/18 21:00 Acetaminophen < 10.0 ug/mL (10.0-30.0) L 11/20/18 20:26 Ur Barbiturates Screen NEGATIVE (NEGATIVE) 11/20/18 21:00 Ur Tricyclics Screen POSITIVE (NEGATIVE) H 11/20/18 21:00 Ur Phencyclidine Scrn NEGATIVE (NEGATIVE) 11/20/18 21:00 Amphetamines Screen NEGATIVE (NEGATIVE) 11/20/18 21:00 U Methamphetamines Scrn NEGATIVE (NEGATIVE) 11/20/18 21:00 U Benzodiazepines Scrn NEGATIVE (NEGATIVE) 11/20/18 21:00 [place] 0.69 mmol/L (0.5-1.0) 11/23/18 09:55 U Cocaine Metab Screen NEGATIVE (NEGATIVE) 11/20/18 21:00 U Cannabinoids Screen NEGATIVE (NEGATIVE) 11/20/18 21:00 Ethyl Alcohol < 10 mg/dL (0-10) 11/20/18 20:26 RPR NONREACTIVE (NONREACTIVE) 11/20/18 20:26 - Physical Exam Vitals and I&O: Vital Signs Temp 98.2 F 11/24/18 06:23 Pulse 94 11/24/18 07:00 Resp 12 11/24/18 07:00 BP 130/86 11/24/18 06:23 Pulse Ox 93 11/24/18 07:00 Intake & Output 11/23/18 11/24/18 11/24/18 18:59 06:59 18:59 Intake Total 950 720 Balance 950 720 Intake: Oral 950 720 Other: # Voids 4 2 # Bowel Movements 1 Active Medications: Current Medications Acetaminophen (Tylenol) 650 mg PO Q4H PRN PRN Reason: Pain Or Fever above 101 Stop: 01/19/19 23:49 Last Admin: 11/23/18 04:24 Dose: 650 mg Acetaminophen/Hydrocodone Bitart ([place] 5mg/325mg) 1 tab PO Q8H PRN PRN Reason: Pain (Severe) Stop: 01/20/19 15:59 Last Admin: 11/22/18 20:55 Dose: 1 tab Al Hydrox/Mg Hydrox/Simethicone (Maalox) 30 ml PO Q6H PRN PRN Reason: Dyspepsia Stop: 01/19/19 22:44 Last Admin: 11/23/18 14:10 Dose: 30 ml Albuterol Sulfate (Albuterol 2.5mg/3ml Neb Ud) 2.5 mg HHN Q2HRT PRN PRN Reason: Shortness of Breath or Wheeze Stop: 01/19/19 23:49 Gabapentin (Neurontin) 300 mg PO BID [facility] Stop: 01/20/19 08:59 Last Admin: 11/24/18 09:12 Dose: 300 mg Guaifenesin (Robitussin) 200 mg PO Q4HR PRN PRN Reason: Cough or Congestion Stop: 01/19/19 23:49 Last Admin: 11/21/18 01:43 Dose: 200 mg Ipratropium [place] (Atrovent Neb 0.5mg/2.5ml) 0.5 mg HHN Q2HRT PRN PRN Reason: Shortness of Breath or Wheeze Stop: 01/19/19 23:49 [place] Carbonate (Eskalith) 600 mg PO BID WALTER Stop: 01/20/19 08:59 Last Admin: 11/24/18 09:12 Dose: 600 mg Lorazepam (Ativan) 1 mg PO Q6H PRN; Protocol PRN Reason: Anxiety/Agitation Stop: 01/19/19 22:44 Last Admin: 11/23/18 23:52 Dose: 1 mg Magnesium Hydroxide (Milk Of Magnesia) 30 ml PO HS PRN PRN Reason: Constipation Stop: 01/19/19 22:44 Quetiapine Fumarate (Seroquel) 600 mg PO HS WALTER; Protocol Stop: 01/22/19 20:59 Last Admin: 11/23/18 20:48 Dose: 600 mg Zolpidem Tartrate (Ambien) 5 mg PO HS PRN PRN Reason: Insomnia Stop: 01/19/19 22:44 Last Admin: 11/23/18 20:49 Dose: 5 mg General: alert, obese, appears older, NAD HEENT: NC/AT, PERRLA, EOMI Neck: Supple, No JVD, No thyromegaly Lungs: CTAB Cardiovascular: RRR, Normal S1, Normal S2 Abdomen: soft, non-tender, globular, positive bowel sound Extremities: excoriation Neurological: no change Internal Medicine Assmt/Plan - Assessment Assessment: 1. Hyperglycemia. Liver function tests, hypercalcemia, low back pain, chronic pain syndrome, osteoarthritis, psych disorder. 2. Obesity. - Plan Plan: monitor glucose, sliding scale fall precautions continue current plan of care
--- NOTE | 2018-11-24 23:00 | Progress Notes ---
DATE: 11/24/2018 PSYCHIATRIC PROGRESS NOTE SUBJECTIVE: Staff was spoken to. The patient is interviewed. Mood is noted to be dysphoric. The patient's mood swings are coming under control. No side effects to the medications are noted. Insight and judgment at this time are noted to be still impaired. Impulse control seems to be limited. No side effects to the medications are noted. The patient has been able to tolerate the lithium, but the patient's glucose is noted to be 126 and triglycerides are high. The patient has been requested to have the lithium level, but it is still pending. PLAN: To continue the patient with supportive therapy. I encouraged the patient to verbalize the concerns rather than to act out. JOB# [id number]
[2018-11-25] MEDS: Hydrocodone/APAP 5mg/325mg Tab PO PRN ×2 (03:36→21:18)
--- NOTE | 2018-11-25 12:53 | Internal Medicine Prog Note ---
Internal Medicine Subjective - Subjective Patient seen and examined:: with staff, chart reviewed Patient is:: awake, verbal, interactive, in wheelchair Patient Complaints of:: LBP Per staff patient has:: no adverse event, no episodes of fall, agitated, tolerating meds Internal Medicine Objective - Results Result Diagrams: 11/20/18 20:26 11/20/18 20:26 Recent Labs: Laboratory Last Values WBC 9.2 Th/cmm (4.8-10.8) 11/20/18 20: RBC 4.86 Mil/cmm (4.30-5.70) 11/20/18 20:26 Hgb 15.0 gm/dL (12-16) 11/20/18 20: Hct 44.7 % (41.0-60) 11/20/18 20: MCV 92.0 fl (80-99) 11/20/18 20: MCH 30.9 pg (26.0-30.0) H 11/20/18 20: MCHC Differential 33.6 pg (28.0-36.0) 11/20/18 20: RDW 14.1 % (11.5-20.0) 11/20/18 20: Plt Count 262 Th/cmm (150-400) 11/20/18 20:26 MPV 7.6 fl 11/20/18 20: Neutrophils % 64.6 % (40.0-80.0) 11/20/18 20: Lymphocytes % 24.0 % (20.0-50.0) 11/20/18 20: Monocytes % 7.5 % (2.0-10.0) 11/20/18 20: Eosinophils % 3.5 % (0.0-5.0) 11/20/18 20: Basophils % 0.4 % (0.0-2.0) 11/20/18 20:26 Sodium 138 mEq/L (136-145) 11/20/18 20: Potassium 4.1 mEq/L (3.5-5.1) 11/20/18 20: Chloride 104 mEq/L (98-107) 11/20/18 20: Carbon Dioxide 28.5 mEq/L (21.0-31.0) 11/20/18 20: Anion Gap 9.6 (7.0-16.0) 11/20/18 20:26 BUN 17 mg/dL (7-25) 11/20/18 20:26 Creatinine 0.9 mg/dL (0.7-1.3) 11/20/18 20:26 Est GFR ( Amer) > 60.0 ml/min (>90) 11/20/18 20:26 Est GFR (Non-Af Amer) > 60.0 ml/min 11/20/18 20:26 BUN/Creatinine Ratio 18.9 11/20/18 20:26 Glucose 126 mg/dL (70-105) H 11/20/18 20:26 Calcium 10.7 mg/dL (8.6-10.3) H 11/20/18 20:26 Total Bilirubin 0.4 mg/dL (0.3-1.0) 11/20/18 20:26 AST 41 U/L (13-39) H 11/20/18 20:26 ALT 83 U/L (7-52) H 11/20/18 20:26 Alkaline Phosphatase 108 U/L (34-104) H 11/20/18 20:26 Troponin I 0.01 ng/mL (0.01-0.05) 11/20/18 20:26 Total Protein 6.8 gm/dL (6.0-8.3) 11/20/18 20:26 Albumin 3.8 gm/dL (4.2-5.5) L 11/20/18 20:26 Globulin 3.0 gm/dL 11/20/18 20: Albumin/Globulin Ratio 1.3 (1.0-1.8) 11/20/18 20:26 Triglycerides 181 mg/dL (<150) H 11/20/18 20:26 Cholesterol 170 mg/dL (<200) 11/20/18 20:26 LDL Cholesterol Direct 124 mg/dL (75-193) 11/20/18 20:26 HDL Cholesterol 38 mg/dL (23-92) 11/20/18 20:26 TSH 2.21 uIU/ml (0.34-5.60) 11/20/18 20:26 Urine Source RANDOM 11/20/18 21:00 Urine Color YELLOW 11/20/18 21:00 Urine Clarity CLEAR (CLEAR) 11/20/18 21:00 Urine pH 7.0 (4.6 - 8.0) 11/20/18 21:00 Ur Specific [place] 1.015 (1.005-1.030) 11/20/18 21:00 Urine Protein NEGATIVE mg/dL (NEGATIVE) 11/20/18 21:00 Urine Glucose (UA) NEGATIVE mg/dL (NEGATIVE) 11/20/18 21:00 Urine Ketones NEGATIVE mg/dL (NEGATIVE) 11/20/18 21:00 Urine Blood NEGATIVE (NEGATIVE) 11/20/18 21:00 Urine Nitrate NEGATIVE (NEGATIVE) 11/20/18 21:00 Urine Bilirubin NEGATIVE (NEGATIVE) 11/20/18 21:00 Urine Urobilinogen 0.2 E.U./dL (0.2 - 1.0) 11/20/18 21:00 Ur Leukocyte Esterase NEGATIVE (NEGATIVE) 11/20/18 21:00 Salicylates < 25.0 mg/L (30.0-100.0) L 11/20/18 20:26 Urine Opiates Screen NEGATIVE (NEGATIVE) 11/20/18 21:00 Urine Methadone Screen NEGATIVE (NEGATIVE) 11/20/18 21:00 Acetaminophen < 10.0 ug/mL (10.0-30.0) L 11/20/18 20:26 Ur Barbiturates Screen NEGATIVE (NEGATIVE) 11/20/18 21:00 Ur Tricyclics Screen POSITIVE (NEGATIVE) H 11/20/18 21:00 Ur Phencyclidine Scrn NEGATIVE (NEGATIVE) 11/20/18 21:00 Amphetamines Screen NEGATIVE (NEGATIVE) 11/20/18 21:00 U Methamphetamines Scrn NEGATIVE (NEGATIVE) 11/20/18 21:00 U Benzodiazepines Scrn NEGATIVE (NEGATIVE) 11/20/18 21:00 [place] 0.64 mmol/L (0.5-1.0) 11/24/18 16:35 U Cocaine Metab Screen NEGATIVE (NEGATIVE) 11/20/18 21:00 U Cannabinoids Screen NEGATIVE (NEGATIVE) 11/20/18 21:00 Ethyl Alcohol < 10 mg/dL (0-10) 11/20/18 20:26 RPR NONREACTIVE (NONREACTIVE) 11/20/18 20:26 - Physical Exam Vitals and I&O: Vital Signs Temp 98.1 F 11/25/18 06:15 Pulse 84 11/25/18 07:00 Resp 12 11/25/18 07:00 BP 101/69 11/25/18 06:15 Pulse Ox 93 11/25/18 07:00 Intake & Output 11/24/18 11/25/18 11/25/18 18:59 06:59 18:59 Intake Total 120 Balance 120 Intake: Oral 120 Other: # Voids 3 # Bowel Movements 0 Active Medications: Current Medications Acetaminophen (Tylenol) 650 mg PO Q4H PRN PRN Reason: Pain Or Fever above 101 Stop: 01/19/19 23:49 Last Admin: 11/23/18 04:24 Dose: 650 mg Acetaminophen/Hydrocodone Bitart ([place] 5mg/325mg) 1 tab PO Q8H PRN PRN Reason: Pain (Severe) Stop: 01/20/19 15:59 Last Admin: 11/25/18 03:36 Dose: 1 tab Al Hydrox/Mg Hydrox/Simethicone (Maalox) 30 ml PO Q6H PRN PRN Reason: Dyspepsia Stop: 01/19/19 22:44 Last Admin: 11/23/18 14:10 Dose: 30 ml Albuterol Sulfate (Albuterol 2.5mg/3ml Neb Ud) 2.5 mg HHN Q2HRT PRN PRN Reason: Shortness of Breath or Wheeze Stop: 01/19/19 23:49 Gabapentin (Neurontin) 300 mg PO BID [facility] Stop: 01/20/19 08:59 Last Admin: 11/25/18 09:54 Dose: 300 mg Guaifenesin (Robitussin) 200 mg PO Q4HR PRN PRN Reason: Cough or Congestion Stop: 01/19/19 23:49 Last Admin: 11/21/18 01:43 Dose: 200 mg Ipratropium [place] (Atrovent Neb 0.5mg/2.5ml) 0.5 mg HHN Q2HRT PRN PRN Reason: Shortness of Breath or Wheeze Stop: 01/19/19 23:49 [place] Carbonate (Eskalith) 600 mg PO BID [facility] Stop: 01/20/19 08:59 Last Admin: 11/25/18 09:54 Dose: 600 mg Lorazepam (Ativan) 1 mg PO Q6H PRN; Protocol PRN Reason: Anxiety/Agitation Stop: 01/19/19 22:44 Last Admin: 11/23/18 23:52 Dose: 1 mg Magnesium Hydroxide (Milk Of Magnesia) 30 ml PO HS PRN PRN Reason: Constipation Stop: 01/19/19 22:44 Quetiapine Fumarate (Seroquel) 600 mg PO HS [facility]; Protocol Stop: 01/22/19 20:59 Last Admin: 11/24/18 21:13 Dose: 600 mg Zolpidem Tartrate (Ambien) 5 mg PO HS PRN PRN Reason: Insomnia Stop: 01/19/19 22:44 Last Admin: 11/23/18 20:49 Dose: 5 mg General: alert, obese, appears older, NAD HEENT: NC/AT, PERRLA, EOMI Neck: Supple, No JVD, No thyromegaly Lungs: CTAB Cardiovascular: RRR, Normal S1, Normal S2 Abdomen: soft, non-tender, globular, positive bowel sound Extremities: excoriation Neurological: no change Internal Medicine Assmt/Plan - Assessment Assessment: ASSESSMENT AND PLAN: 1. Hyperglycemia. Liver function tests, hypercalcemia, low back pain, chronic pain syndrome, osteoarthritis, psych disorder. 2. Obesity. - Plan Plan: A. We will continue the on Neurontin. We will treat the patient with nonsteroidal anti-inflammatory drugs, we will try to avoid narcotic medication, the patient insisting, we will see if it is okay with Psychiatry. We will continue to monitor the patient closely.
--- NOTE | 2018-11-26 00:47 | Progress Notes ---
DATE: 11/25/2018 SUBJECTIVE: Staff was spoken to. The patient is interviewed. Mood is noted to be irritable. Affect is constricted. Insight and judgment are noted to be still impaired. Impulse control is noted to be limited. Coping skills are noted to be limited. The patient has no place to return to. The patient has been minimally participating in the groups. No side effects to the medications are noted. ASSESSMENT: The patient is still having mood swings. PLAN: To continue the patient with the supportive therapy, encouraged the patient to verbalize the concerns rather than to act out. JOB# [id number]
--- NOTE | 2018-11-26 04:36 | Progress Notes ---
DATE: 11/25/2018 SUBJECTIVE: The patient is seen in his room. The patient is interviewed. Mood is dysphoric. The patient's mood swings seemed to be improving and lessening. The patient is taking his p.o. medications. Impulse control continues to be limited. Staff reports that the patient is generally compliant with his care and treatment. OBJECTIVE: Mood dysphoric. Affect constricted. Thought process is linear and concrete with some repetition and perseveration. The patient denied any auditory or visual hallucinations. The patient's behavior has been compliant with his care and treatment and he has been following through with staff direction. ASSESSMENT AND PLAN: We continued to provide supportive psychotherapy. We provided positive reinforcement for the patient's compliance with his care and treatment. We provided reality testing and reality integration. We encouraged the patient to verbalize his concerns versus acting out. We will follow up in 2 to 3 days to continue present treatment. JOB# [id number] [email or web address]
--- NOTE | 2018-11-26 12:18 | Internal Medicine Prog Note ---
Internal Medicine Subjective - Subjective Patient seen and examined:: with staff, chart reviewed Patient is:: awake, verbal, interactive, in wheelchair Patient Complaints of:: LBP Per staff patient has:: no adverse event, no episodes of fall, agitated, tolerating meds Internal Medicine Objective - Results Result Diagrams: 11/20/18 20:26 11/20/18 20:26 Recent Labs: Laboratory Last Values WBC 9.2 Th/cmm (4.8-10.8) 11/20/18 20: RBC 4.86 Mil/cmm (4.30-5.70) 11/20/18 20:26 Hgb 15.0 gm/dL (12-16) 11/20/18 20: Hct 44.7 % (41.0-60) 11/20/18 20: MCV 92.0 fl (80-99) 11/20/18 20: MCH 30.9 pg (26.0-30.0) H 11/20/18 20: MCHC Differential 33.6 pg (28.0-36.0) 11/20/18 20: RDW 14.1 % (11.5-20.0) 11/20/18 20: Plt Count 262 Th/cmm (150-400) 11/20/18 20:26 MPV 7.6 fl 11/20/18 20: Neutrophils % 64.6 % (40.0-80.0) 11/20/18 20: Lymphocytes % 24.0 % (20.0-50.0) 11/20/18 20: Monocytes % 7.5 % (2.0-10.0) 11/20/18 20: Eosinophils % 3.5 % (0.0-5.0) 11/20/18 20: Basophils % 0.4 % (0.0-2.0) 11/20/18 20:26 Sodium 138 mEq/L (136-145) 11/20/18 20: Potassium 4.1 mEq/L (3.5-5.1) 11/20/18 20: Chloride 104 mEq/L (98-107) 11/20/18 20: Carbon Dioxide 28.5 mEq/L (21.0-31.0) 11/20/18 20: Anion Gap 9.6 (7.0-16.0) 11/20/18 20:26 BUN 17 mg/dL (7-25) 11/20/18 20:26 Creatinine 0.9 mg/dL (0.7-1.3) 11/20/18 20:26 Est GFR ( Amer) > 60.0 ml/min (>90) 11/20/18 20:26 Est GFR (Non-Af Amer) > 60.0 ml/min 11/20/18 20:26 BUN/Creatinine Ratio 18.9 11/20/18 20:26 Glucose 126 mg/dL (70-105) H 11/20/18 20:26 Calcium 10.7 mg/dL (8.6-10.3) H 11/20/18 20:26 Total Bilirubin 0.4 mg/dL (0.3-1.0) 11/20/18 20:26 AST 41 U/L (13-39) H 11/20/18 20:26 ALT 83 U/L (7-52) H 11/20/18 20:26 Alkaline Phosphatase 108 U/L (34-104) H 11/20/18 20:26 Troponin I 0.01 ng/mL (0.01-0.05) 11/20/18 20:26 Total Protein 6.8 gm/dL (6.0-8.3) 11/20/18 20:26 Albumin 3.8 gm/dL (4.2-5.5) L 11/20/18 20:26 Globulin 3.0 gm/dL 11/20/18 20: Albumin/Globulin Ratio 1.3 (1.0-1.8) 11/20/18 20:26 Triglycerides 181 mg/dL (<150) H 11/20/18 20:26 Cholesterol 170 mg/dL (<200) 11/20/18 20:26 LDL Cholesterol Direct 124 mg/dL (75-193) 11/20/18 20:26 HDL Cholesterol 38 mg/dL (23-92) 11/20/18 20:26 TSH 2.21 uIU/ml (0.34-5.60) 11/20/18 20:26 Urine Source RANDOM 11/20/18 21:00 Urine Color YELLOW 11/20/18 21:00 Urine Clarity CLEAR (CLEAR) 11/20/18 21:00 Urine pH 7.0 (4.6 - 8.0) 11/20/18 21:00 Ur Specific [place] 1.015 (1.005-1.030) 11/20/18 21:00 Urine Protein NEGATIVE mg/dL (NEGATIVE) 11/20/18 21:00 Urine Glucose (UA) NEGATIVE mg/dL (NEGATIVE) 11/20/18 21:00 Urine Ketones NEGATIVE mg/dL (NEGATIVE) 11/20/18 21:00 Urine Blood NEGATIVE (NEGATIVE) 11/20/18 21:00 Urine Nitrate NEGATIVE (NEGATIVE) 11/20/18 21:00 Urine Bilirubin NEGATIVE (NEGATIVE) 11/20/18 21:00 Urine Urobilinogen 0.2 E.U./dL (0.2 - 1.0) 11/20/18 21:00 Ur Leukocyte Esterase NEGATIVE (NEGATIVE) 11/20/18 21:00 Salicylates < 25.0 mg/L (30.0-100.0) L 11/20/18 20:26 Urine Opiates Screen NEGATIVE (NEGATIVE) 11/20/18 21:00 Urine Methadone Screen NEGATIVE (NEGATIVE) 11/20/18 21:00 Acetaminophen < 10.0 ug/mL (10.0-30.0) L 11/20/18 20:26 Ur Barbiturates Screen NEGATIVE (NEGATIVE) 11/20/18 21:00 Ur Tricyclics Screen POSITIVE (NEGATIVE) H 11/20/18 21:00 Ur Phencyclidine Scrn NEGATIVE (NEGATIVE) 11/20/18 21:00 Amphetamines Screen NEGATIVE (NEGATIVE) 11/20/18 21:00 U Methamphetamines Scrn NEGATIVE (NEGATIVE) 11/20/18 21:00 U Benzodiazepines Scrn NEGATIVE (NEGATIVE) 11/20/18 21:00 [place] 0.64 mmol/L (0.5-1.0) 11/24/18 16:35 U Cocaine Metab Screen NEGATIVE (NEGATIVE) 11/20/18 21:00 U Cannabinoids Screen NEGATIVE (NEGATIVE) 11/20/18 21:00 Ethyl Alcohol < 10 mg/dL (0-10) 11/20/18 20:26 RPR NONREACTIVE (NONREACTIVE) 11/20/18 20:26 - Physical Exam Vitals and I&O: Vital Signs Temp 97.0 F 11/26/18 06:08 Pulse 79 11/26/18 07:27 Resp 18 11/26/18 07:27 BP 129/73 11/26/18 06:08 Pulse Ox 96 11/26/18 07:27 Intake & Output 11/25/18 11/26/18 11/26/18 18:59 06:59 18:59 Intake Total 240 Balance 240 Intake: Oral 240 Other: # Voids 2 1 # Bowel Movements 0 0 Active Medications: Current Medications Acetaminophen (Tylenol) 650 mg PO Q4H PRN PRN Reason: Pain Or Fever above 101 Stop: 01/19/19 23:49 Last Admin: 11/23/18 04:24 Dose: 650 mg Acetaminophen/Hydrocodone Bitart ([place] 5mg/325mg) 1 tab PO Q8H PRN PRN Reason: Pain (Severe) Stop: 01/20/19 15:59 Last Admin: 11/25/18 21:18 Dose: 1 tab Al Hydrox/Mg Hydrox/Simethicone (Maalox) 30 ml PO Q6H PRN PRN Reason: Dyspepsia Stop: 01/19/19 22:44 Last Admin: 11/23/18 14:10 Dose: 30 ml Albuterol Sulfate (Albuterol 2.5mg/3ml Neb Ud) 2.5 mg HHN Q2HRT PRN PRN Reason: Shortness of Breath or Wheeze Stop: 01/19/19 23:49 Gabapentin (Neurontin) 300 mg PO BID [facility] Stop: 01/20/19 08:59 Last Admin: 11/26/18 09:57 Dose: 300 mg Guaifenesin (Robitussin) 200 mg PO Q4HR PRN PRN Reason: Cough or Congestion Stop: 01/19/19 23:49 Last Admin: 11/21/18 01:43 Dose: 200 mg Ipratropium [place] (Atrovent Neb 0.5mg/2.5ml) 0.5 mg HHN Q2HRT PRN PRN Reason: Shortness of Breath or Wheeze Stop: 01/19/19 23:49 [place] Carbonate (Eskalith) 600 mg PO BID [facility] Stop: 01/20/19 08:59 Last Admin: 11/26/18 09:57 Dose: 600 mg Lorazepam (Ativan) 1 mg PO Q6H PRN; Protocol PRN Reason: Anxiety/Agitation Stop: 01/19/19 22:44 Last Admin: 11/23/18 23:52 Dose: 1 mg Magnesium Hydroxide (Milk Of Magnesia) 30 ml PO HS PRN PRN Reason: Constipation Stop: 01/19/19 22:44 Quetiapine Fumarate (Seroquel) 600 mg PO HS [facility]; Protocol Stop: 01/22/19 20:59 Last Admin: 11/25/18 21:17 Dose: 600 mg Zolpidem Tartrate (Ambien) 5 mg PO HS PRN PRN Reason: Insomnia Stop: 01/19/19 22:44 Last Admin: 11/23/18 20:49 Dose: 5 mg General: alert, obese, appears older, NAD HEENT: NC/AT, PERRLA, EOMI Neck: Supple, No JVD, No thyromegaly Lungs: CTAB Cardiovascular: RRR, Normal S1, Normal S2 Abdomen: soft, non-tender, globular, positive bowel sound Extremities: excoriation Neurological: no change Internal Medicine Assmt/Plan - Assessment Assessment: ASSESSMENT AND PLAN: 1. Hyperglycemia. Liver function tests, hypercalcemia, low back pain, chronic pain syndrome, osteoarthritis, psych disorder. 2. Obesity. - Plan Plan: A. We will continue the on Neurontin. We will treat the patient with nonsteroidal anti-inflammatory drugs, we will try to avoid narcotic medication, the patient insisting, we will see if it is okay with Psychiatry. We will continue to monitor the patient closely. Nutritional Asmnt/Malnutr-PDOC - Dietary Evaluation Malnutrition Findings (Please click <Entered> for more info): Nutritional Asmnt/Malnutrition Start: 11/25/18 13: 26 Text: Status: Complete Freq: Protocol: Document 11/25/18 13:26 LCHENG (Rec: 11/25/18 13:31 [email or web address]) Nutritional Asmnt/Malnutrition Patient General Information Nutritional Screening Moderate Risk Diagnosis psychosis Pertinent Medical Hx/Surgical Hx chronis low back pain, OA, psych disorder Subjective Information Pt seen eating lunch at dining room at time of visit, alert, stated everything is good. PO intake 100% per EMR. Current Diet Order/ Nutrition Support mech soft chopped Pertinent Medications seroquel Pertinent Labs 11/20 Glucose 126, Alb 3.8 Nutritional Hx/Data Height 1.88 m Height (Calculated Centimeters) 188.0 Current Weight (lbs) 121.109 kg Weight (Calculated Kilograms) 121.1 Weight (Calculated Grams) 867030.2 [place] Body Weight 190 Body Mass Index (BMI) 34.2 Weight Status Obese GI Symptoms GI Symptoms None Last BM 11/23 Difficult in: None Skin Integrity/Comment: intact Current %PO Good (75-100%) Estimated Nutritional Goals BEE in Kcals: Adj wt of IBW Calories/Kcals/Kg 25-30 Kcals Calculated [id number] Protein: Adj wt of IBW Protein g/k.8 Protein Calculated 76 Fluid: ml 2375-2850ml (1ml/kcal) Nutritional Problem No current Nutrition Prob Problem N/A Malnutrition Alert Is there a minimum of two criteria No selected? Query Text:Check all the applicable criteria. A minimum of two criteria are recommended for diagnosis of either severe or non-severe malnutrition. Malnutrition Related to Morbid Obesity Malnutrition related to morbid obesity No Intervention/Recommendation Comments 1. Continue with [facility] soft chopped diet as ordered. 2. Monitor PO intake, wt, labs and skin integrity 3. F/U as low risk in 7 days. Expected Outcomes/Goals Expected Outcomes/Goals 1. PO intake to meet at least 75% of nutritional needs. 2. Wt stability, skin to remain intact, labs to approach WNL.
[2018-11-26] MEDS: Hydrocodone/APAP 5mg/325mg Tab PO PRN (20:13)
--- NOTE | 2018-11-27 01:50 | Progress Notes ---
DATE: 11/26/2018 PSYCHIATRIC PROGRESS NOTE SUBJECTIVE: Staff was spoken to. The patient is interviewed. Mood is noted to be irritable. Affect is constricted. The patient has been having difficult time to figure it out where he left his glasses. The patient has been getting easily frustrated. Insight and judgment at this time are noted to be still impaired. Impulse control is noted to be poor. Coping skills are noted to be very poor. The patient has been having difficult time to cope with the stress. The patient is not ready to be discharged in view of his mood swings. The patient is also stating that he has to go to [facility]. He does not want to go back to [facility]. ASSESSMENT: The patient is still impulsive. PLAN: To continue the patient with the Seroquel 600 mg at bedtime, lithium carbonate 600 mg b.i.d. and follow the patient with the supportive therapy. The patient's lithium level is noted to be 0.64. No side effects to the medications are noted at this time. JOB# [id number]
--- NOTE | 2018-11-27 12:12 | Internal Medicine Prog Note ---
Internal Medicine Subjective - Subjective Patient seen and examined:: with staff, chart reviewed Patient is:: awake, verbal, interactive, in wheelchair Patient Complaints of:: LBP Per staff patient has:: no adverse event, no episodes of fall, agitated, tolerating meds Internal Medicine Objective - Results Result Diagrams: 11/20/18 20:26 11/20/18 20:26 Recent Labs: Laboratory Last Values WBC 9.2 Th/cmm (4.8-10.8) 11/20/18 20: RBC 4.86 Mil/cmm (4.30-5.70) 11/20/18 20:26 Hgb 15.0 gm/dL (12-16) 11/20/18 20: Hct 44.7 % (41.0-60) 11/20/18 20: MCV 92.0 fl (80-99) 11/20/18 20: MCH 30.9 pg (26.0-30.0) H 11/20/18 20: MCHC Differential 33.6 pg (28.0-36.0) 11/20/18 20: RDW 14.1 % (11.5-20.0) 11/20/18 20: Plt Count 262 Th/cmm (150-400) 11/20/18 20:26 MPV 7.6 fl 11/20/18 20: Neutrophils % 64.6 % (40.0-80.0) 11/20/18 20: Lymphocytes % 24.0 % (20.0-50.0) 11/20/18 20: Monocytes % 7.5 % (2.0-10.0) 11/20/18 20: Eosinophils % 3.5 % (0.0-5.0) 11/20/18 20: Basophils % 0.4 % (0.0-2.0) 11/20/18 20:26 Sodium 138 mEq/L (136-145) 11/20/18 20: Potassium 4.1 mEq/L (3.5-5.1) 11/20/18 20: Chloride 104 mEq/L (98-107) 11/20/18 20: Carbon Dioxide 28.5 mEq/L (21.0-31.0) 11/20/18 20: Anion Gap 9.6 (7.0-16.0) 11/20/18 20:26 BUN 17 mg/dL (7-25) 11/20/18 20:26 Creatinine 0.9 mg/dL (0.7-1.3) 11/20/18 20:26 Est GFR ( Amer) > 60.0 ml/min (>90) 11/20/18 20:26 Est GFR (Non-Af Amer) > 60.0 ml/min 11/20/18 20:26 BUN/Creatinine Ratio 18.9 11/20/18 20:26 Glucose 126 mg/dL (70-105) H 11/20/18 20:26 Calcium 10.7 mg/dL (8.6-10.3) H 11/20/18 20:26 Total Bilirubin 0.4 mg/dL (0.3-1.0) 11/20/18 20:26 AST 41 U/L (13-39) H 11/20/18 20:26 ALT 83 U/L (7-52) H 11/20/18 20:26 Alkaline Phosphatase 108 U/L (34-104) H 11/20/18 20:26 Troponin I 0.01 ng/mL (0.01-0.05) 11/20/18 20:26 Total Protein 6.8 gm/dL (6.0-8.3) 11/20/18 20:26 Albumin 3.8 gm/dL (4.2-5.5) L 11/20/18 20:26 Globulin 3.0 gm/dL 11/20/18 20: Albumin/Globulin Ratio 1.3 (1.0-1.8) 11/20/18 20:26 Triglycerides 181 mg/dL (<150) H 11/20/18 20:26 Cholesterol 170 mg/dL (<200) 11/20/18 20:26 LDL Cholesterol Direct 124 mg/dL (75-193) 11/20/18 20:26 HDL Cholesterol 38 mg/dL (23-92) 11/20/18 20:26 TSH 2.21 uIU/ml (0.34-5.60) 11/20/18 20:26 Urine Source RANDOM 11/20/18 21:00 Urine Color YELLOW 11/20/18 21:00 Urine Clarity CLEAR (CLEAR) 11/20/18 21:00 Urine pH 7.0 (4.6 - 8.0) 11/20/18 21:00 Ur Specific [place] 1.015 (1.005-1.030) 11/20/18 21:00 Urine Protein NEGATIVE mg/dL (NEGATIVE) 11/20/18 21:00 Urine Glucose (UA) NEGATIVE mg/dL (NEGATIVE) 11/20/18 21:00 Urine Ketones NEGATIVE mg/dL (NEGATIVE) 11/20/18 21:00 Urine Blood NEGATIVE (NEGATIVE) 11/20/18 21:00 Urine Nitrate NEGATIVE (NEGATIVE) 11/20/18 21:00 Urine Bilirubin NEGATIVE (NEGATIVE) 11/20/18 21:00 Urine Urobilinogen 0.2 E.U./dL (0.2 - 1.0) 11/20/18 21:00 Ur Leukocyte Esterase NEGATIVE (NEGATIVE) 11/20/18 21:00 Salicylates < 25.0 mg/L (30.0-100.0) L 11/20/18 20:26 Urine Opiates Screen NEGATIVE (NEGATIVE) 11/20/18 21:00 Urine Methadone Screen NEGATIVE (NEGATIVE) 11/20/18 21:00 Acetaminophen < 10.0 ug/mL (10.0-30.0) L 11/20/18 20:26 Ur Barbiturates Screen NEGATIVE (NEGATIVE) 11/20/18 21:00 Ur Tricyclics Screen POSITIVE (NEGATIVE) H 11/20/18 21:00 Ur Phencyclidine Scrn NEGATIVE (NEGATIVE) 11/20/18 21:00 Amphetamines Screen NEGATIVE (NEGATIVE) 11/20/18 21:00 U Methamphetamines Scrn NEGATIVE (NEGATIVE) 11/20/18 21:00 U Benzodiazepines Scrn NEGATIVE (NEGATIVE) 11/20/18 21:00 [place] 0.64 mmol/L (0.5-1.0) 11/24/18 16:35 U Cocaine Metab Screen NEGATIVE (NEGATIVE) 11/20/18 21:00 U Cannabinoids Screen NEGATIVE (NEGATIVE) 11/20/18 21:00 Ethyl Alcohol < 10 mg/dL (0-10) 11/20/18 20:26 RPR NONREACTIVE (NONREACTIVE) 11/20/18 20:26 - Physical Exam Vitals and I&O: Vital Signs Temp 97.2 F 11/27/18 06:24 Pulse 72 11/27/18 09:25 Resp 20 11/27/18 09:25 BP 105/64 11/27/18 06:24 Pulse Ox 95 11/27/18 09:25 Intake & Output 11/26/18 11/27/18 11/27/18 18:59 06:59 18:59 Intake Total 640 Balance 640 Intake: Oral 640 Other: # Voids 1 # Bowel Movements 0 Active Medications: Current Medications Acetaminophen (Tylenol) 650 mg PO Q4H PRN PRN Reason: Pain Or Fever above 101 Stop: 01/19/19 23:49 Last Admin: 11/23/18 04:24 Dose: 650 mg Acetaminophen/Hydrocodone Bitart ([place] 5mg/325mg) 1 tab PO Q8H PRN PRN Reason: Pain (Severe) Stop: 01/20/19 15:59 Last Admin: 11/26/18 20:13 Dose: 1 tab Al Hydrox/Mg Hydrox/Simethicone (Maalox) 30 ml PO Q6H PRN PRN Reason: Dyspepsia Stop: 01/19/19 22:44 Last Admin: 11/23/18 14:10 Dose: 30 ml Albuterol Sulfate (Albuterol 2.5mg/3ml Neb Ud) 2.5 mg HHN Q2HRT PRN PRN Reason: Shortness of Breath or Wheeze Stop: 01/19/19 23:49 Gabapentin (Neurontin) 300 mg PO BID [facility] Stop: 01/20/19 08:59 Last Admin: 11/27/18 09:12 Dose: 300 mg Guaifenesin (Robitussin) 200 mg PO Q4HR PRN PRN Reason: Cough or Congestion Stop: 01/19/19 23:49 Last Admin: 11/21/18 01:43 Dose: 200 mg Ipratropium [place] (Atrovent Neb 0.5mg/2.5ml) 0.5 mg HHN Q2HRT PRN PRN Reason: Shortness of Breath or Wheeze Stop: 01/19/19 23:49 [place] Carbonate (Eskalith) 600 mg PO BID [facility] Stop: 01/20/19 08:59 Last Admin: 11/27/18 09:12 Dose: 600 mg Lorazepam (Ativan) 1 mg PO Q6H PRN; Protocol PRN Reason: Anxiety/Agitation Stop: 01/19/19 22:44 Last Admin: 11/23/18 23:52 Dose: 1 mg Magnesium Hydroxide (Milk Of Magnesia) 30 ml PO HS PRN PRN Reason: Constipation Stop: 01/19/19 22:44 Quetiapine Fumarate (Seroquel) 600 mg PO HS WALTER; Protocol Stop: 01/22/19 20:59 Zolpidem Tartrate (Ambien) 5 mg PO HS PRN PRN Reason: Insomnia Stop: 01/19/19 22:44 Last Admin: 11/23/18 20:49 Dose: 5 mg General: alert, obese, appears older, NAD HEENT: NC/AT, PERRLA, EOMI Neck: Supple, No JVD, No thyromegaly Lungs: CTAB Cardiovascular: RRR, Normal S1, Normal S2 Abdomen: soft, non-tender, globular, positive bowel sound Extremities: excoriation Neurological: no change Internal Medicine Assmt/Plan - Assessment Assessment: ASSESSMENT AND PLAN: 1. Hyperglycemia. Liver function tests, hypercalcemia, low back pain, chronic pain syndrome, osteoarthritis, psych disorder. 2. Obesity. - Plan Plan: A. We will continue the on Neurontin. We will treat the patient with nonsteroidal anti-inflammatory drugs, we will try to avoid narcotic medication, the patient insisting, we will see if it is okay with Psychiatry. We will continue to monitor the patient closely. Nutritional Asmnt/Malnutr-PDOC - Dietary Evaluation Malnutrition Findings (Please click <Entered> for more info): Nutritional Asmnt/Malnutrition Start: 11/25/18 13: 26 Text: Status: Complete Freq: Protocol: Document 11/25/18 13:26 LCHENG (Rec: 11/25/18 13:31 [email or web address] [email or web address]) Nutritional Asmnt/Malnutrition Patient General Information Nutritional Screening Moderate Risk Diagnosis psychosis Pertinent Medical Hx/Surgical Hx chronis low back pain, OA, psych disorder Subjective Information Pt seen eating lunch at dining room at time of visit, alert, stated everything is good. PO intake 100% per EMR. Current Diet Order/ Nutrition Support [facility] soft chopped Pertinent Medications seroquel Pertinent Labs 11/20 Glucose 126, Alb 3.8 Nutritional Hx/Data Height 1.88 m Height (Calculated Centimeters) 188.0 Current Weight (lbs) 121.109 kg Weight (Calculated Kilograms) 121.1 Weight (Calculated Grams) 100939.2 [place] Body Weight 190 Body Mass Index (BMI) 34.2 Weight Status Obese GI Symptoms GI Symptoms None Last BM 11/23 Difficult in: None Skin Integrity/Comment: intact Current %PO Good (75-100%) Estimated Nutritional Goals BEE in Kcals: Adj wt of IBW Calories/Kcals/Kg 25-30 Kcals Calculated 0309-8829 Protein: Adj wt of IBW Protein g/k.8 Protein Calculated 76 Fluid: ml 2375-2850ml (1ml/kcal) Nutritional Problem No current Nutrition Prob Problem N/A Malnutrition Alert Is there a minimum of two criteria No selected? Query Text:Check all the applicable criteria. A minimum of two criteria are recommended for diagnosis of either severe or non-severe malnutrition. Malnutrition Related to Morbid Obesity Malnutrition related to morbid obesity No Intervention/Recommendation Comments 1. Continue with [facility] soft chopped diet as ordered. 2. Monitor PO intake, wt, labs and skin integrity 3. F/U as low risk in 7 days. Expected Outcomes/Goals Expected Outcomes/Goals 1. PO intake to meet at least 75% of nutritional needs. 2. Wt stability, skin to remain intact, labs to approach WNL.
--- NOTE | 2018-11-28 01:04 | Progress Notes ---
DATE: 11/27/2018 PSYCHIATRIC PROGRESS NOTE SUBJECTIVE: Staff was spoken to. The patient is interviewed. Mood is noted to be irritable. Affect is constricted. Coping skills are noted to be poor. The patient has been having forgetfulness. The patient for 1 minute is stating that he brought his dentures and glasses, but nothing could be found over here. The patient has been getting easily frustrated. Coping skills at this time are noted to be poor. No side effects to medications are noted. The patient is stating that he needs to go to [facility], close to his family members. ASSESSMENT: The patient is getting easily agitated and ____. PLAN: To continue the patient with supportive therapy. I encouraged the patient to verbalize the concerns rather than to act out. JOB# [id number]
--- NOTE | 2018-11-28 02:28 | Progress Notes ---
DATE: 11/27/2018 SUBJECTIVE: The patient is interviewed. The patient was seen in his room. The patient appears to be somewhat guarded; however, the patient did respond to some of the clinical questions. The patient perseverated on where he left his glasses. The patient has asked the staff this repeatedly and is unable to comprehend and integrate answers being given to him. Insight and judgment continue to be poor. The patient gets easily frustrated according to the staff on the unit. Impulse control is limited. OBJECTIVE: Mood: mood swings continue. Affect constricted. Thought process is concrete with some perseveration. The patient is repetitive and is constantly requesting staff involvement. The patient denied any auditory or visual hallucinations. The patient continued to make requests regarding discharge stating that he needs to go to [facility] and does not want to return to his placement. ASSESSMENT AND PLAN: Poor impulse control persists. The patient was provided supportive psychotherapy to include remotivation to follow through with staff direction as well as to become compliant and stay compliant with all aspects of his care and treatment. We provided reality testing, reality orientation and reality integration. We provided cognitive refocusing toward treatment goals. We encouraged the patient to be able to verbalize his concerns to the staff and to be able to accept the treatment plan and treatment goals that are being provided. We will follow up in 2 to 3 days to continue present treatment. JOB# [id number] ROSALEE
--- NOTE | 2018-11-28 12:37 | Internal Medicine Prog Note ---
Internal Medicine Subjective - Subjective Patient seen and examined:: with staff, chart reviewed Patient is:: awake, verbal, interactive, in wheelchair Patient Complaints of:: LBP Per staff patient has:: no adverse event, no episodes of fall, agitated, tolerating meds Internal Medicine Objective - Results Result Diagrams: 11/20/18 20:26 11/20/18 20:26 Recent Labs: Laboratory Last Values WBC 9.2 Th/cmm (4.8-10.8) 11/20/18 20: RBC 4.86 Mil/cmm (4.30-5.70) 11/20/18 20:26 Hgb 15.0 gm/dL (12-16) 11/20/18 20: Hct 44.7 % (41.0-60) 11/20/18 20: MCV 92.0 fl (80-99) 11/20/18 20: MCH 30.9 pg (26.0-30.0) H 11/20/18 20: MCHC Differential 33.6 pg (28.0-36.0) 11/20/18 20: RDW 14.1 % (11.5-20.0) 11/20/18 20: Plt Count 262 Th/cmm (150-400) 11/20/18 20:26 MPV 7.6 fl 11/20/18 20: Neutrophils % 64.6 % (40.0-80.0) 11/20/18 20: Lymphocytes % 24.0 % (20.0-50.0) 11/20/18 20: Monocytes % 7.5 % (2.0-10.0) 11/20/18 20: Eosinophils % 3.5 % (0.0-5.0) 11/20/18 20: Basophils % 0.4 % (0.0-2.0) 11/20/18 20:26 Sodium 138 mEq/L (136-145) 11/20/18 20: Potassium 4.1 mEq/L (3.5-5.1) 11/20/18 20: Chloride 104 mEq/L (98-107) 11/20/18 20: Carbon Dioxide 28.5 mEq/L (21.0-31.0) 11/20/18 20: Anion Gap 9.6 (7.0-16.0) 11/20/18 20:26 BUN 17 mg/dL (7-25) 11/20/18 20:26 Creatinine 0.9 mg/dL (0.7-1.3) 11/20/18 20:26 Est GFR ( Amer) > 60.0 ml/min (>90) 11/20/18 20:26 Est GFR (Non-Af Amer) > 60.0 ml/min 11/20/18 20:26 BUN/Creatinine Ratio 18.9 11/20/18 20:26 Glucose 126 mg/dL (70-105) H 11/20/18 20:26 Calcium 10.7 mg/dL (8.6-10.3) H 11/20/18 20:26 Total Bilirubin 0.4 mg/dL (0.3-1.0) 11/20/18 20:26 AST 41 U/L (13-39) H 11/20/18 20:26 ALT 83 U/L (7-52) H 11/20/18 20:26 Alkaline Phosphatase 108 U/L (34-104) H 11/20/18 20:26 Troponin I 0.01 ng/mL (0.01-0.05) 11/20/18 20:26 Total Protein 6.8 gm/dL (6.0-8.3) 11/20/18 20:26 Albumin 3.8 gm/dL (4.2-5.5) L 11/20/18 20:26 Globulin 3.0 gm/dL 11/20/18 20: Albumin/Globulin Ratio 1.3 (1.0-1.8) 11/20/18 20:26 Triglycerides 181 mg/dL (<150) H 11/20/18 20:26 Cholesterol 170 mg/dL (<200) 11/20/18 20:26 LDL Cholesterol Direct 124 mg/dL (75-193) 11/20/18 20:26 HDL Cholesterol 38 mg/dL (23-92) 11/20/18 20:26 TSH 2.21 uIU/ml (0.34-5.60) 11/20/18 20:26 Urine Source RANDOM 11/20/18 21:00 Urine Color YELLOW 11/20/18 21:00 Urine Clarity CLEAR (CLEAR) 11/20/18 21:00 Urine pH 7.0 (4.6 - 8.0) 11/20/18 21:00 Ur Specific [place] 1.015 (1.005-1.030) 11/20/18 21:00 Urine Protein NEGATIVE mg/dL (NEGATIVE) 11/20/18 21:00 Urine Glucose (UA) NEGATIVE mg/dL (NEGATIVE) 11/20/18 21:00 Urine Ketones NEGATIVE mg/dL (NEGATIVE) 11/20/18 21:00 Urine Blood NEGATIVE (NEGATIVE) 11/20/18 21:00 Urine Nitrate NEGATIVE (NEGATIVE) 11/20/18 21:00 Urine Bilirubin NEGATIVE (NEGATIVE) 11/20/18 21:00 Urine Urobilinogen 0.2 E.U./dL (0.2 - 1.0) 11/20/18 21:00 Ur Leukocyte Esterase NEGATIVE (NEGATIVE) 11/20/18 21:00 Salicylates < 25.0 mg/L (30.0-100.0) L 11/20/18 20:26 Urine Opiates Screen NEGATIVE (NEGATIVE) 11/20/18 21:00 Urine Methadone Screen NEGATIVE (NEGATIVE) 11/20/18 21:00 Acetaminophen < 10.0 ug/mL (10.0-30.0) L 11/20/18 20:26 Ur Barbiturates Screen NEGATIVE (NEGATIVE) 11/20/18 21:00 Ur Tricyclics Screen POSITIVE (NEGATIVE) H 11/20/18 21:00 Ur Phencyclidine Scrn NEGATIVE (NEGATIVE) 11/20/18 21:00 Amphetamines Screen NEGATIVE (NEGATIVE) 11/20/18 21:00 U Methamphetamines Scrn NEGATIVE (NEGATIVE) 11/20/18 21:00 U Benzodiazepines Scrn NEGATIVE (NEGATIVE) 11/20/18 21:00 [place] 0.64 mmol/L (0.5-1.0) 11/24/18 16:35 U Cocaine Metab Screen NEGATIVE (NEGATIVE) 11/20/18 21:00 U Cannabinoids Screen NEGATIVE (NEGATIVE) 11/20/18 21:00 Ethyl Alcohol < 10 mg/dL (0-10) 11/20/18 20:26 RPR NONREACTIVE (NONREACTIVE) 11/20/18 20:26 - Physical Exam Vitals and I&O: Vital Signs Temp 97.9 F 11/28/18 06:29 Pulse 80 11/28/18 08:30 Resp 18 11/28/18 08:30 BP 110/63 11/28/18 06:29 Pulse Ox 98 11/28/18 08:30 Intake & Output 11/27/18 11/28/18 11/28/18 18:59 06:59 18:59 Intake Total 900 120 Balance 900 120 Intake: Oral 900 120 Other: # Voids 4 3 # Bowel Movements 1 Active Medications: Current Medications Acetaminophen (Tylenol) 650 mg PO Q4H PRN PRN Reason: Pain Or Fever above 101 Stop: 01/19/19 23:49 Last Admin: 11/23/18 04:24 Dose: 650 mg Acetaminophen/Hydrocodone Bitart ([place] 5mg/325mg) 1 tab PO Q8H PRN PRN Reason: Pain (Severe) Stop: 01/20/19 15:59 Last Admin: 11/26/18 20:13 Dose: 1 tab Al Hydrox/Mg Hydrox/Simethicone (Maalox) 30 ml PO Q6H PRN PRN Reason: Dyspepsia Stop: 01/19/19 22:44 Last Admin: 11/23/18 14:10 Dose: 30 ml Albuterol Sulfate (Albuterol 2.5mg/3ml Neb Ud) 2.5 mg HHN Q2HRT PRN PRN Reason: Shortness of Breath or Wheeze Stop: 01/19/19 23:49 Gabapentin (Neurontin) 300 mg PO BID [facility] Stop: 01/20/19 08:59 Last Admin: 11/28/18 09:26 Dose: 300 mg Guaifenesin (Robitussin) 200 mg PO Q4HR PRN PRN Reason: Cough or Congestion Stop: 01/19/19 23:49 Last Admin: 11/21/18 01:43 Dose: 200 mg Ipratropium [place] (Atrovent Neb 0.5mg/2.5ml) 0.5 mg HHN Q2HRT PRN PRN Reason: Shortness of Breath or Wheeze Stop: 01/19/19 23:49 [place] Carbonate (Eskalith) 600 mg PO BID [facility] Stop: 01/20/19 08:59 Last Admin: 11/28/18 09:26 Dose: 600 mg Lorazepam (Ativan) 1 mg PO Q6H PRN; Protocol PRN Reason: Anxiety/Agitation Stop: 01/19/19 22:44 Last Admin: 11/23/18 23:52 Dose: 1 mg Magnesium Hydroxide (Milk Of Magnesia) 30 ml PO HS PRN PRN Reason: Constipation Stop: 01/19/19 22:44 Quetiapine Fumarate (Seroquel) 600 mg PO HS WALTER; Protocol Stop: 01/22/19 20:59 Last Admin: 11/27/18 21:55 Dose: 600 mg Zolpidem Tartrate (Ambien) 5 mg PO HS PRN PRN Reason: Insomnia Stop: 01/19/19 22:44 Last Admin: 11/27/18 21:55 Dose: 5 mg General: alert, obese, appears older, NAD HEENT: NC/AT, PERRLA, EOMI Neck: Supple, No JVD, No thyromegaly Lungs: CTAB Cardiovascular: RRR, Normal S1, Normal S2 Abdomen: soft, non-tender, globular, positive bowel sound Extremities: excoriation Neurological: no change Internal Medicine Assmt/Plan - Assessment Assessment: ASSESSMENT AND PLAN: 1. Hyperglycemia. Liver function tests, hypercalcemia, low back pain, chronic pain syndrome, osteoarthritis, psych disorder. 2. Obesity. - Plan Plan: A. We will continue the on Neurontin. We will treat the patient with nonsteroidal anti-inflammatory drugs, we will try to avoid narcotic medication, the patient insisting, we will see if it is okay with Psychiatry. We will continue to monitor the patient closely. Nutritional Asmnt/Malnutr-PDOC - Dietary Evaluation Malnutrition Findings (Please click <Entered> for more info): Nutritional Asmnt/Malnutrition Start: 11/25/18 13: 26 Text: Status: Complete Freq: Protocol: Document 11/25/18 13:26 LCHENG (Rec: 11/25/18 13:31 LCHENG [email or web address]) Nutritional Asmnt/Malnutrition Patient General Information Nutritional Screening Moderate Risk Diagnosis psychosis Pertinent Medical Hx/Surgical Hx chronis low back pain, OA, psych disorder Subjective Information Pt seen eating lunch at dining room at time of visit, alert, stated everything is good. PO intake 100% per EMR. Current Diet Order/ Nutrition Support [facility] soft chopped Pertinent Medications seroquel Pertinent Labs 11/20 Glucose 126, Alb 3.8 Nutritional Hx/Data Height 1.88 m Height (Calculated Centimeters) 188.0 Current Weight (lbs) 121.109 kg Weight (Calculated Kilograms) 121.1 Weight (Calculated Grams) 409914.2 [place] Body Weight 190 Body Mass Index (BMI) 34.2 Weight Status Obese GI Symptoms GI Symptoms None Last BM 11/23 Difficult in: None Skin Integrity/Comment: intact Current %PO Good (75-100%) Estimated Nutritional Goals BEE in Kcals: Adj wt of IBW Calories/Kcals/Kg 25-30 Kcals Calculated 0628-0099 Protein: Adj wt of IBW Protein g/k.8 Protein Calculated 76 Fluid: ml 2375-2850ml (1ml/kcal) Nutritional Problem No current Nutrition Prob Problem N/A Malnutrition Alert Is there a minimum of two criteria No selected? Query Text:Check all the applicable criteria. A minimum of two criteria are recommended for diagnosis of either severe or non-severe malnutrition. Malnutrition Related to Morbid Obesity Malnutrition related to morbid obesity No Intervention/Recommendation Comments 1. Continue with [facility] soft chopped diet as ordered. 2. Monitor PO intake, wt, labs and skin integrity 3. F/U as low risk in 7 days. Expected Outcomes/Goals Expected Outcomes/Goals 1. PO intake to meet at least 75% of nutritional needs. 2. Wt stability, skin to remain intact, labs to approach WNL.
--- NOTE | 2018-11-28 14:39 | Progress Notes ---
DATE: 11/28/2018 PSYCHIATRIC PROGRESS NOTE PROGRESS ON THE UNIT: Staff was spoken to. The patient is interviewed. Mood is noted to be irritable. Affect is constricted. The patient is stating that he is not able to find his glasses and dentures and the patient is getting easily frustrated. The patient has been very forgetful. The patient is currently on 600 mg at bedtime of Seroquel and has been able to tolerate the medication, no side effects to the medication are noted so far. The patient is also on lithium, the lithium level is 0.64, no side effects to the medication are noted at this time. The patient is stating that he is reluctant to go back to the [facility], but the medical case worker is saying that there is no placement in [facility] they can come up with, and hence the patient is convinced to return back to [facility] and look for placement from there onwards. ASSESSMENT: The patient's mood swings are coming under control. PLAN: To continue the patient with supportive therapy. Encouraged the patient to verbalize the concerns rather than to act out. JOB# [id number]
--- NOTE | 2018-11-29 11:46 | Progress Notes ---
DATE: 11/29/2018 PSYCHIATRIC PROGRESS NOTE SUBJECTIVE: Staff was spoken to. The patient is interviewed. Mood is noted to be irritable. Affect is constricted; the patient however, is not presenting with any threats to harm self or others. The patient has been having problems towards the evening when he started to complain that he lost his teeth and his wallet. The patient is not presenting as a threat to self or others and hence it is decided to discharge the patient today back to the [facility]. [facility]# [id number]
--- NOTE | 2018-11-29 12:06 | Internal Medicine Prog Note ---
Internal Medicine Subjective - Subjective Patient seen and examined:: with staff, chart reviewed Patient is:: awake, verbal, interactive, in wheelchair Patient Complaints of:: LBP Per staff patient has:: no adverse event, no episodes of fall, agitated, tolerating meds Internal Medicine Objective - Results Result Diagrams: 11/20/18 20:26 11/20/18 20:26 Recent Labs: Laboratory Last Values WBC 9.2 Th/cmm (4.8-10.8) 11/20/18 20: RBC 4.86 Mil/cmm (4.30-5.70) 11/20/18 20:26 Hgb 15.0 gm/dL (12-16) 11/20/18 20: Hct 44.7 % (41.0-60) 11/20/18 20: MCV 92.0 fl (80-99) 11/20/18 20: MCH 30.9 pg (26.0-30.0) H 11/20/18 20: MCHC Differential 33.6 pg (28.0-36.0) 11/20/18 20: RDW 14.1 % (11.5-20.0) 11/20/18 20: Plt Count 262 Th/cmm (150-400) 11/20/18 20:26 MPV 7.6 fl 11/20/18 20: Neutrophils % 64.6 % (40.0-80.0) 11/20/18 20: Lymphocytes % 24.0 % (20.0-50.0) 11/20/18 20: Monocytes % 7.5 % (2.0-10.0) 11/20/18 20: Eosinophils % 3.5 % (0.0-5.0) 11/20/18 20: Basophils % 0.4 % (0.0-2.0) 11/20/18 20:26 Sodium 138 mEq/L (136-145) 11/20/18 20: Potassium 4.1 mEq/L (3.5-5.1) 11/20/18 20: Chloride 104 mEq/L (98-107) 11/20/18 20: Carbon Dioxide 28.5 mEq/L (21.0-31.0) 11/20/18 20: Anion Gap 9.6 (7.0-16.0) 11/20/18 20:26 BUN 17 mg/dL (7-25) 11/20/18 20:26 Creatinine 0.9 mg/dL (0.7-1.3) 11/20/18 20:26 Est GFR ( Amer) > 60.0 ml/min (>90) 11/20/18 20:26 Est GFR (Non-Af Amer) > 60.0 ml/min 11/20/18 20:26 BUN/Creatinine Ratio 18.9 11/20/18 20:26 Glucose 126 mg/dL (70-105) H 11/20/18 20:26 Calcium 10.7 mg/dL (8.6-10.3) H 11/20/18 20:26 Total Bilirubin 0.4 mg/dL (0.3-1.0) 11/20/18 20:26 AST 41 U/L (13-39) H 11/20/18 20:26 ALT 83 U/L (7-52) H 11/20/18 20:26 Alkaline Phosphatase 108 U/L (34-104) H 11/20/18 20:26 Troponin I 0.01 ng/mL (0.01-0.05) 11/20/18 20:26 Total Protein 6.8 gm/dL (6.0-8.3) 11/20/18 20:26 Albumin 3.8 gm/dL (4.2-5.5) L 11/20/18 20:26 Globulin 3.0 gm/dL 11/20/18 20: Albumin/Globulin Ratio 1.3 (1.0-1.8) 11/20/18 20:26 Triglycerides 181 mg/dL (<150) H 11/20/18 20:26 Cholesterol 170 mg/dL (<200) 11/20/18 20:26 LDL Cholesterol Direct 124 mg/dL (75-193) 11/20/18 20:26 HDL Cholesterol 38 mg/dL (23-92) 11/20/18 20:26 TSH 2.21 uIU/ml (0.34-5.60) 11/20/18 20:26 Urine Source RANDOM 11/20/18 21:00 Urine Color YELLOW 11/20/18 21:00 Urine Clarity CLEAR (CLEAR) 11/20/18 21:00 Urine pH 7.0 (4.6 - 8.0) 11/20/18 21:00 Ur Specific [place] 1.015 (1.005-1.030) 11/20/18 21:00 Urine Protein NEGATIVE mg/dL (NEGATIVE) 11/20/18 21:00 Urine Glucose (UA) NEGATIVE mg/dL (NEGATIVE) 11/20/18 21:00 Urine Ketones NEGATIVE mg/dL (NEGATIVE) 11/20/18 21:00 Urine Blood NEGATIVE (NEGATIVE) 11/20/18 21:00 Urine Nitrate NEGATIVE (NEGATIVE) 11/20/18 21:00 Urine Bilirubin NEGATIVE (NEGATIVE) 11/20/18 21:00 Urine Urobilinogen 0.2 E.U./dL (0.2 - 1.0) 11/20/18 21:00 Ur Leukocyte Esterase NEGATIVE (NEGATIVE) 11/20/18 21:00 Salicylates < 25.0 mg/L (30.0-100.0) L 11/20/18 20:26 Urine Opiates Screen NEGATIVE (NEGATIVE) 11/20/18 21:00 Urine Methadone Screen NEGATIVE (NEGATIVE) 11/20/18 21:00 Acetaminophen < 10.0 ug/mL (10.0-30.0) L 11/20/18 20:26 Ur Barbiturates Screen NEGATIVE (NEGATIVE) 11/20/18 21:00 Ur Tricyclics Screen POSITIVE (NEGATIVE) H 11/20/18 21:00 Ur Phencyclidine Scrn NEGATIVE (NEGATIVE) 11/20/18 21:00 Amphetamines Screen NEGATIVE (NEGATIVE) 11/20/18 21:00 U Methamphetamines Scrn NEGATIVE (NEGATIVE) 11/20/18 21:00 U Benzodiazepines Scrn NEGATIVE (NEGATIVE) 11/20/18 21:[address] [place] 0.64 mmol/L (0.5-1.0) 11/24/18 16:35 U Cocaine Metab Screen NEGATIVE (NEGATIVE) 11/20/18 21:00 U Cannabinoids Screen NEGATIVE (NEGATIVE) 11/20/18 21:00 Ethyl Alcohol < 10 mg/dL (0-10) 11/20/18 20:26 RPR NONREACTIVE (NONREACTIVE) 11/20/18 20:26 - Physical Exam Vitals and I&O: Vital Signs Temp 98.1 F 11/29/18 06:22 Pulse 90 11/29/18 08:17 Resp 19 11/29/18 11:08 BP 94/60 11/29/18 06:22 Pulse Ox 98 11/29/18 08:17 Intake & Output 11/28/18 11/29/18 11/29/18 18:59 06:59 18:59 Intake Total 1000 720 Balance 1000 720 Intake: Oral 1000 720 Other: # Voids 4 1 # Bowel Movements 1 Stool Characteristics Soft Formed Brown Active Medications: Current Medications Acetaminophen (Tylenol) 650 mg PO Q4H PRN PRN Reason: Pain Or Fever above 101 Stop: 01/19/19 23:49 Last Admin: 11/23/18 04:24 Dose: 650 mg Acetaminophen/Hydrocodone Bitart ([place] 5mg/325mg) 1 tab PO Q8H PRN PRN Reason: Pain (Severe) Stop: 01/20/19 15:59 Last Admin: 11/26/18 20:13 Dose: 1 tab Al Hydrox/Mg Hydrox/Simethicone (Maalox) 30 ml PO Q6H PRN PRN Reason: Dyspepsia Stop: 01/19/19 22:44 Last Admin: 11/23/18 14:10 Dose: 30 ml Albuterol Sulfate (Albuterol 2.5mg/3ml Neb Ud) 2.5 mg HHN Q2HRT PRN PRN Reason: Shortness of Breath or Wheeze Stop: 01/19/19 23:49 Gabapentin (Neurontin) 300 mg PO BID WALTER Stop: 01/20/19 08:59 Last Admin: 11/29/18 08:48 Dose: 300 mg Guaifenesin (Robitussin) 200 mg PO Q4HR PRN PRN Reason: Cough or Congestion Stop: 01/19/19 23:49 Last Admin: 11/21/18 01:43 Dose: 200 mg Ipratropium [place] (Atrovent Neb 0.5mg/2.5ml) 0.5 mg HHN Q2HRT PRN PRN Reason: Shortness of Breath or Wheeze Stop: 01/19/19 23:49 [place] Carbonate (Eskalith) 600 mg PO BID WALTER Stop: 01/20/19 08:59 Last Admin: 11/29/18 08:48 Dose: 600 mg Lorazepam (Ativan) 1 mg PO Q6H PRN; Protocol PRN Reason: Anxiety/Agitation Stop: 01/19/19 22:44 Last Admin: 11/23/18 23:52 Dose: 1 mg Magnesium Hydroxide (Milk Of Magnesia) 30 ml PO HS PRN PRN Reason: Constipation Stop: 01/19/19 22:44 Quetiapine Fumarate (Seroquel) 600 mg PO HS WALTER; Protocol Stop: 01/22/19 20:59 Last Admin: 11/28/18 21:23 Dose: 600 mg Zolpidem Tartrate (Ambien) 5 mg PO HS PRN PRN Reason: Insomnia Stop: 01/19/19 22:44 Last Admin: 11/28/18 21:23 Dose: 5 mg General: alert, obese, appears older, NAD HEENT: NC/AT, PERRLA, EOMI Neck: Supple, No JVD, No thyromegaly Lungs: CTAB Cardiovascular: RRR, Normal S1, Normal S2 Abdomen: soft, non-tender, globular, positive bowel sound Extremities: excoriation Neurological: no change Internal Medicine Assmt/Plan - Assessment Assessment: ASSESSMENT AND PLAN: 1. Hyperglycemia. Liver function tests, hypercalcemia, low back pain, chronic pain syndrome, osteoarthritis, psych disorder. 2. Obesity. - Plan Plan: A. We will continue the on Neurontin. We will treat the patient with nonsteroidal anti-inflammatory drugs, we will try to avoid narcotic medication, the patient insisting, we will see if it is okay with Psychiatry. We will continue to monitor the patient closely. Nutritional Asmnt/Malnutr-PDOC - Dietary Evaluation Malnutrition Findings (Please click <Entered> for more info): Nutritional Asmnt/Malnutrition Start: 11/25/18 13: 26 Text: Status: Complete Freq: Protocol: Document 11/25/18 13:26 LCHENG (Rec: 11/25/18 13:31 [email or web address] [email or web address]) Nutritional Asmnt/Malnutrition Patient General Information Nutritional Screening Moderate Risk Diagnosis psychosis Pertinent Medical Hx/Surgical Hx chronis low back pain, OA, psych disorder Subjective Information Pt seen eating lunch at dining room at time of visit, alert, stated everything is good. PO intake 100% per EMR. Current Diet Order/ Nutrition Support mech soft chopped Pertinent Medications seroquel Pertinent Labs 11/20 Glucose 126, Alb 3.8 Nutritional Hx/Data Height 1.88 m Height (Calculated Centimeters) 188.0 Current Weight (lbs) 121.109 kg Weight (Calculated Kilograms) 121.1 Weight (Calculated Grams) 940354.2 [place] Body Weight 190 Body Mass Index (BMI) 34.2 Weight Status Obese GI Symptoms GI Symptoms None Last BM 11/23 Difficult in: None Skin Integrity/Comment: intact Current %PO Good (75-100%) Estimated Nutritional Goals BEE in Kcals: Adj wt of IBW Calories/Kcals/Kg 25-30 Kcals Calculated 4063-2705 Protein: Adj wt of IBW Protein g/k.8 Protein Calculated 76 Fluid: ml 2375-2850ml (1ml/kcal) Nutritional Problem No current Nutrition Prob Problem N/A Malnutrition Alert Is there a minimum of two criteria No selected? Query Text:Check all the applicable criteria. A minimum of two criteria are recommended for diagnosis of either severe or non-severe malnutrition. Malnutrition Related to Morbid Obesity Malnutrition related to morbid obesity No Intervention/Recommendation Comments 1. Continue with [facility] soft chopped diet as ordered. 2. Monitor PO intake, wt, labs and skin integrity 3. F/U as low risk in 7 days. Expected Outcomes/Goals Expected Outcomes/Goals 1. PO intake to meet at least 75% of nutritional needs. 2. Wt stability, skin to remain intact, labs to approach WNL.
== END 2018-11-29 17:30 | DRG 885 ==
LOC: ER 19:57 → GERO 21:05
DX: F25.9 Schizoaffective disorder, unspecified (principal); E11.65 Type 2 diabetes mellitus with hyperglycemia; F23 Brief psychotic disorder; E83.52 Hypercalcemia; M54.5 Low back pain; M19.90 Unspecified osteoarthritis, unspecified site; E66.9 Obesity, unspecified; I10 Essential (primary) hypertension; F17.210 Nicotine dependence, cigarettes, uncomplicated; G89.4 Chronic pain syndrome; Z82.49 Family history of ischemic heart disease and other diseases of the circulatory system; Z68.34 Body mass index [BMI] 34.0-34.9, adult; Z98.890 Other specified postprocedural states
CPT/HCPCS: 36415-UA; 80053-TC; 80061-TC; 80178-TC; 80307; 80320-TC; 80329-TC; 81003-TC; 84443-TC; 84484-TC; 85025-TC; 86592-TC; 90899; 93005; 94760; G0410; Z7610

== ENCOUNTER 2019-04-24 18:15 | Inpatient (IN) | payer MEDICARE, MEDICAID ==
--- NOTE | 2019-04-24 19:26 | ED Physician Chart ---
ED Chief Complaint/HPI - Patient Information Date Seen:: 04/24/19 Time Seen:: 19:15 Chief Complaint:: increased agitation and aggression History of Present Illness:: Patient has reportedly been exhibiting increased aggression and agitation at his longterm facility recently. Allergies:: Allergies Allergy/AdvReac Type Severity Reaction Status Date / Time No Known Allergies Allergy Verified 04/24/19 18:40 Vitals:: Vital Signs - 8 hr 04/24/19 18:15 Temp 98.4 F HR 102 RR 18 BP 101/64 O2 Sat % 92 Historian:: Patient Review:: Transfer documents Reviewed ED Review of Systems - Review of Systems General/Constitutional: No fever, No chills Skin: Skin lesions, Other (scars both knees) Head: No headache Eyes: No loss of vision ENT: No earache Neck: No neck pain Cardio Vascular: No chest pain, No palpitations Pulmonary: No SOB, No cough, No sputum GI: No nausea, No vomiting, No diarrhea G/U: No dysuria Musculoskeletal: No bone or joint pain Endocrine: No polyuria Psychiatric: Prior psych history Hematopoietic: No bruising Allergic/Immuno: No urticaria Neurological: No syncope ED Past Medical History - Past Medical History Past Medical History: Other (polyneuropathy; tonic pain; psychosis; major depression; anemia) Family History: Diabetes [place] Social History: Smoker, Care Facility, Other (smokes 15 this 20 cigarettes a day ; last alcohol consumption about 2 months ago) Surgical History: other (surgery) Psychiatricy History: Schizophrenia, Bipolar Medication: Reviewed Family Medical History - Family Member Mother History Unknown: Yes ED Physical Exam - Physical Examination General/Constitutional: Awake Other Gen/Cons comments:: Patient is alert; he does not know the year Head: Atraumatic Eyes: Lids, conjuctiva normal, PERRL Other Skin comments:: circular scars centered 12 o'clock both patellae ENMT: External ears, nose nl, Lips, teeth, gums nl Neck: No nuchal rigidity Respiratory: Nl effort/Exclusion, Clear to Auscultation, No Wheeze/Rhonchi/Rales Cardio Vascular: RRR, No murmur, gallop, rubs GI: No tenderness/rebounding/guarding, No organomegaly, No hernia, Normal BS's Extremities: Normal digits & nails Other Extremities comments:: 2 out of 4 pretibial pitting edema edema Neuro/Psych: No focal deficits ED Labs/Radiology/EKG Results - Lab Results Results: Laboratory Results WBC 7.9 Th/cmm (4.8-10.8) 04/24/19 19:30 RBC 4.93 Mil/cmm (4.30-5.70) 04/24/19 19:30 Hgb 16.0 gm/dL (12-16) 04/24/19 19:30 Hct 46.4 % (41.0-60) 04/24/19 19:30 MCV 93.9 fl (80-99) 04/24/19 19:30 MCH 32.5 pg (26.0-30.0) H 04/24/19 19:30 MCHC Differential 34.6 pg (28.0-36.0) 04/24/19 19:30 RDW 13.7 % (11.5-20.0) 04/24/19 19:30 Plt Count 200 Th/cmm (150-400) 04/24/19 19:30 MPV 7.5 fl 04/24/19 19:30 Neutrophils % 61.6 % (40.0-80.0) 04/24/19 19:30 Lymphocytes % 27.1 % (20.0-50.0) 04/24/19 19:30 Monocytes % 8.0 % (2.0-10.0) 04/24/19 19:30 Eosinophils % 3.0 % (0.0-5.0) 04/24/19 19:30 Basophils % 0.3 % (0.0-2.0) 04/24/19 19:30 Sodium 136 mEq/L (136-145) 04/24/19 19:30 Potassium 4.1 mEq/L (3.5-5.1) 04/24/19 19:30 Chloride 104 mEq/L (98-107) 04/24/19 19:30 Carbon Dioxide 25.5 mEq/L (21.0-31.0) 04/24/19 19:30 Anion Gap 10.6 (7.0-16.0) 04/24/19 19:30 BUN 19 mg/dL (7-25) 04/24/19 19:30 Creatinine 1.0 mg/dL (0.7-1.3) 04/24/19 19:30 Est GFR ( Amer) > 60.0 ml/min (>90) 04/24/19 19:30 Est GFR (Non-Af Amer) > 60.0 ml/min 04/24/19 19:30 BUN/Creatinine Ratio 19.0 04/24/19 19:30 Glucose 181 mg/dL (70-105) H 04/24/19 19:30 Calcium 10.9 mg/dL (8.6-10.3) H 04/24/19 19:30 Total Bilirubin 0.4 mg/dL (0.3-1.0) 04/24/19 19:30 AST 50 U/L (13-39) H 04/24/19 19:30 ALT 112 U/L (7-52) H 04/24/19 19:30 Alkaline Phosphatase 95 U/L (34-104) 04/24/19 19:30 Total Protein 6.8 gm/dL (6.0-8.3) 04/24/19 19:30 Albumin 3.8 gm/dL (4.2-5.5) L 04/24/19 19:30 Globulin 3.0 gm/dL 04/24/19 19:30 Albumin/Globulin Ratio 1.3 (1.0-1.8) 04/24/19 19:30 Triglycerides 214 mg/dL (<150) H 04/24/19 19:30 Cholesterol 161 mg/dL (<200) 04/24/19 19:30 LDL Cholesterol Direct 118 mg/dL (75-193) 04/24/19 19:30 HDL Cholesterol 30 mg/dL (23-92) 04/24/19 19:30 - EKG Interpretations Rate & Rhythm: NSR with a rate of 93 Ingram: normal ED Septic Shock - . Is Septic Shock (SBP<90, OR Lactate>4 mmol\L) present?: No - <6hrs of presentation: Vital Signs: Vital Signs - 8 hr 04/24/19 18:15 Temp 98.4 F HR 102 RR 18 BP 101/64 O2 Sat % 92 ED Reassessment (Disposition) - Reassessment Reassessment Condition:: Unchanged - Diagnosis Diagnosis:: aggressive behavior; schizophrenia; bipolar disorder; depression - Patient Disposition Admitted to:: [facility] Admitting Medical Physician:: Sanya Lloyd Admitting Psych Physician:: Rajat Ceballos Condition at Disposition:: Stable, Unchanged
[2019-04-24 19:37] LABS: % BASOPHILS 0.3 % (0.0-2.0); % LYMPHOCYTES 27.1 % (20.0-50.0); % NEUTROPHILS 61.6 % (40.0-80.0); EOSINOPHILE ABSOLUTE 0.2 Th/cmm (0.1-0.4); HEMATOCRIT 46.4 % (41.0-60); LYMPHOCYTE ABSOLUTE 2.1 Th/cmm (1.5-3.0); MEAN CELL VOLUME 93.9 fl (80-99); MEAN CORPUSCULAR HEMOGLOBIN 32.5 pg (26.0-30.0); MEAN CORPUSCULAR HGB CONC 34.6 pg (28.0-36.0); MONOCYTE ABSOLUTE 0.6 Th/cmm (0.3-1.0); PLATELET COUNT 200 Th/cmm (150-400); RED BLOOD COUNT 4.93 Mil/cmm (4.30-5.70); RED CELL DISTRIBUTION WIDTH 13.7 % (11.5-20.0); WHITE BLOOD COUNT 7.9 Th/cmm (4.8-10.8)
[2019-04-24 19:57] LABS: ALB/GLOB RATIO 1.3 (1.0-1.8); ALBUMIN 3.8 gm/dL (4.2-5.5); ALKALINE PHOSPHATASE 95 U/L (34-104); ANION GAP 10.6 (7.0-16.0); BILIRUBIN,TOTAL 0.4 mg/dL (0.3-1.0); BUN - UREA NITROGEN 19 mg/dL (7-25); CALCIUM SERUM 10.9 mg/dL (8.6-10.3); CARBON DIOXIDE 25.5 mEq/L (21.0-31.0); CHLORIDE 104 mEq/L (98-107); CHOLESTEROL 161 mg/dL (<200); GFR AFRICAN-AMERICAN > 60.0 ml/min (>90); GFR NON AFRICAN-AMERICAN > 60.0 ml/min; GLUCOSE 181 mg/dL (70-105); HDL -HIGH DENSITY LIPOPROTEIN 30 mg/dL (23-92); POTASSIUM SERUM 4.1 mEq/L (3.5-5.1); SGOT 50 U/L (13-39); SGPT/ALT 112 U/L (7-52); SODIUM SERUM 136 mEq/L (136-145); TOTAL PROTEIN,SERUM 6.8 gm/dL (6.0-8.3); TRIGLYCERIDES 214 mg/dL (<150)
[2019-04-24 20:04] LABS: URINE SOURCE CLEAN C
[2019-04-24 20:05] LABS: URINE BILIRUBIN NEGATIVE (NEGATIVE); URINE BLOOD NEGATIVE (NEGATIVE); URINE GLUCOSE (UA) NEGATIVE (NEGATIVE); URINE KETONE NEGATIVE (NEGATIVE); URINE LEUKOCYTE ESTERASE NEGATIVE (NEGATIVE); URINE NITRATE NEGATIVE (NEGATIVE); URINE PROTEIN NEGATIVE (NEGATIVE)
[2019-04-24 20:11] LABS: URINE CLARITY CLEAR (CLEAR); URINE COLOR YELLOW; URINE MICROSCOPIC INDICATED? YES
[2019-04-24 20:12] LABS: URINE BACTERIA FEW /hpf (NONE SEEN); URINE EPITHELIAL CELLS NONE SEEN /lpf (FEW); URINE RBC 0-2 /hpf (0-5); URINE WBC 0-2 /hpf (0-5)
[2019-04-24 21:43] VITALS: BP 129/88
[2019-04-24] MEDS ORDERED: Maalox 30 mL Cup PO PRN (21:48)
[2019-04-24] MEDS ORDERED: Albuterol Nebulizer 2.5mg/3mL HHN PRN (21:48)
[2019-04-24] MEDS ORDERED: guaiFENesin 200 MG/10 ML UDC PO PRN (21:48)
[2019-04-24] MEDS ORDERED: Ipratropium Neb 0.5 mg/2.5 mL UD HHN PRN (21:48)
[2019-04-24] MEDS ORDERED: Magnesium Hydroxide (MOM) 30 mL UDC PO PRN (21:48)
[2019-04-25 06:05] LABS: A1C 6.5 % (4.8-5.6)
[2019-04-25] MEDS: Multivitamin Tab PO SCH (08:26)
[2019-04-25] MEDS ORDERED: Dextrose 50% 50 mL Abboject IVP PRN (12:46)
[2019-04-25] MEDS ORDERED: GLUCAGON HCl 1 MG KIT IM PRN (12:46)
--- NOTE | 2019-04-25 23:02 | History & Physical ---
ADMIT DATE: 04/24/2019 CHIEF COMPLAINT: Agitated behavior for medical care and evaluation. HISTORY OF PRESENT ILLNESS: This is a 54-year-old male with history of asthma, high blood sugar, obesity, chronic pain syndrome, arthritis, admitted from nursing facility under the service of Dr. Ceballos. The patient complains of knee pain. Denies chest pain or shortness of breath. Denies diabetes. PAST MEDICAL HISTORY: As mentioned in the history of present illness. PAST SURGICAL HISTORY: Left knee surgery. ALLERGIES: No known drug allergies. MEDICATIONS: Tylenol, albuterol, Atrovent, [place], lithium, magnesium, Seroquel, Risperdal. FAMILY HISTORY: Noncontributory. SOCIAL HISTORY: The patient is an avid smoker. He used to drink heavily, used marijuana in the past. 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 Single with one child. REVIEW OF SYSTEMS: GENERAL: Complains of not feeling well. HEENT: No blurred vision. LUNGS: Negative for COPD or asthma, chronic smoker, 15 cigarettes per day. ABDOMEN: No nausea, vomiting, or pain. GENITOURINARY: The patient denies increased frequency or dysuria. NEUROLOGIC: No headache, seizure or syncope. PSYCHIATRIC: See above. ENDOCRINE: Denies diabetes. PHYSICAL EXAMINATION: VITAL SIGNS: Blood pressure 118/73, respirations 18, pulse 80, temperature 98.2. GENERAL: Elderly male, morbidly obese. NECK: Supple. No mass. LUNGS: Equal breath sounds, few rhonchi. HEART: Regular rate and rhythm without appreciable murmur. ABDOMEN: Soft, globular. EXTREMITIES: Positive excoriations. NEUROLOGIC: Limited. LABORATORY DATA: WBC ____, hemoglobin 16, platelets 200. Sodium 136, potassium 4.1, BUN 19, creatinine 1.0, blood sugar 181 and calcium is 10.9, AST and ALT 50 and 112, albumin 2.8. ASSESSMENT AND PLAN: Diabetes, hypercalcemia, elevated liver function tests, low albumin, psych disorder, obesity, osteoarthritis, chronic pain syndrome. We will check the patient's hemoglobin A1c as well as fingerstick ____ once a day. Continue insulin sliding scale. We will monitor the liver function test. We will provide the patient nonsteroidal anti-inflammatory drugs. We will continue to monitor the patient closely with you. [facility]# [id number]
--- NOTE | 2019-04-26 05:06 | Psychiatric Evaluation ---
DATE OF SERVICE: 04/25/2019 IDENTIFYING DATA: The patient is a 54-year-old male resident of [facility]. Information obtained by directly interviewing the patient as well as reviewing the admission papers. JUSTIFICATION OF HOSPITALIZATION: The patient is admitted for acute agitation and aggressive behavior. CHIEF COMPLAINT: "I don't understand why I need to be in here." HISTORY OF PRESENT ILLNESS: This is the second psychiatric hospitalization to [facility] for this patient, who was hospitalized under my care in November. The patient following stabilization has been referred to [facility] for further followup. During the evaluation, the patient is reported to have been getting easily irritable and angry and stating that he has been there only few months and he is not able to get along before that he was in a different place in [facility]. The patient is stating that he should not be in here, he should be discharged. Sleep and appetite prior to the hospitalization are reported to be poor. The patient is reported to have been getting easily irritable. PAST PSYCHIATRIC HISTORY: The patient was hospitalized here in November. MEDICAL HISTORY: Physical examination is requested to be done by Dr. Lloyd. SUBSTANCE ABUSE HISTORY: None. PHYSICAL OR SEXUAL ABUSE HISTORY: None. LEGAL PROBLEMS: None at this time. SOCIAL HISTORY: The patient is a resident of a jail facility. MENTAL STATUS EXAMINATION: The patient is a 54-year-old moderately obese, superficially cooperative. Eye contact is fair. Mood is irritable. The patient has been having acute mood swings. The patient has paranoid delusions and is endorsing auditory hallucinations. The patient is reporting that he has been having problem in dealing with the people that is the reason why they sent him over here. The patient is alert and oriented to time, place, person, and situation. Attention span and concentration are noted to be poor. Short-term and long-term memory are noted to be intact. The patient's behavior is a clear danger to others at this time. DIAGNOSTIC IMPRESSION: AXIS I: Schizoaffective disorder, bipolar type. AXIS II: None. AXIS III: As per Dr. Lloyd. IMMEDIATE TREATMENT PLAN: The patient is going to be observed on inpatient unit. Provided with supportive psychotherapy. The patient is going to be closely monitored. I encouraged to participate in the groups and verbalize the concerns. The patient is reporting that he did well on the lithium and Seroquel and hence he is going to be started and the patient is now stating that he does not want any more of the Risperdal and he could not figure it out why it has been started. The patient is going to be closely monitored. I encouraged to verbalize the concerns. Once stabilized, the patient is going to be discharged to self to be followed up on an outpatient basis. JOB# [id number]
[2019-04-26] MEDS: INSULIN LISPRO SLIDING SCALE 100 UNITS/ML UNIT SUBQ SCH (06:29)
[2019-04-26] MEDS: Multivitamin Tab PO SCH (08:30)
--- NOTE | 2019-04-26 17:15 | Internal Medicine Prog Note ---
Internal Medicine Subjective - Subjective Service Date: 04/26/19 Patient seen and examined:: with staff Patient is:: awake Per staff patient has:: tolerating meds Internal Medicine Objective - Results Result Diagrams: 04/24/19 19:30 04/24/19 19:30 Recent Labs: Laboratory Last Values WBC 7.9 Th/cmm (4.8-10.8) 04/24/19 19: RBC 4.93 Mil/cmm (4.30-5.70) 04/24/19 19:30 Hgb 16.0 gm/dL (12-16) 04/24/19 19:30 Hct 46.4 % (41.0-60) 04/24/19: MCV 93.9 fl (80-99) 04/24/19: MCH 32.5 pg (26.0-30.0) H 04/24/19: MCHC Differential 34.6 pg (28.0-36.0) 04/24/19: RDW 13.7 % (11.5-20.0) 04/24/19: Plt Count 200 Th/cmm (150-400) 04/24/19 19:30 MPV 7.5 fl 04/24/19 19:30 Neutrophils % 61.6 % (40.0-80.0) 04/24/19: Lymphocytes % 27.1 % (20.0-50.0) 04/24/19: Monocytes % 8.0 % (2.0-10.0) 04/24/19: Eosinophils % 3.0 % (0.0-5.0) 04/24/19: Basophils % 0.3 % (0.0-2.0) 04/24/19 19:30 Sodium 136 mEq/L (136-145) 04/24/19 19: Potassium 4.1 mEq/L (3.5-5.1) 04/24/19: Chloride 104 mEq/L (98-107) 04/24/19 19:30 Carbon Dioxide 25.5 mEq/L (21.0-31.0) 04/24/19 19:30 Anion Gap 10.6 (7.0-16.0) 04/24/19 19:30 BUN 19 mg/dL (7-25) 04/24/19 19:30 Creatinine 1.0 mg/dL (0.7-1.3) 04/24/19 19:30 Est GFR ( Amer) > 60.0 ml/min (>90) 04/24/19 19:30 Est GFR (Non-Af Amer) > 60.0 ml/min 04/24/19 19:30 BUN/Creatinine Ratio 19.0 04/24/19 19:30 Glucose 181 mg/dL (70-105) H 04/24/19 19:30 Calcium 10.9 mg/dL (8.6-10.3) H 04/24/19 19:30 Total Bilirubin 0.4 mg/dL (0.3-1.0) 04/24/19 19:30 AST 50 U/L (13-39) H 04/24/19 19:30 ALT 112 U/L (7-52) H 04/24/19 19:30 Alkaline Phosphatase 95 U/L (34-104) 04/24/19 19:30 Total Protein 6.8 gm/dL (6.0-8.3) 04/24/19 19:30 Albumin 3.8 gm/dL (4.2-5.5) L 04/24/19 19:30 Globulin 3.0 gm/dL 04/24/19 19:30 Albumin/Globulin Ratio 1.3 (1.0-1.8) 04/24/19 19:30 Triglycerides 214 mg/dL (<150) H 04/24/19 19:30 Cholesterol 161 mg/dL (<200) 04/24/19 19:30 LDL Cholesterol Direct 118 mg/dL (75-193) 04/24/19 19:30 HDL Cholesterol 30 mg/dL (23-92) 04/24/19 19:30 TSH 2.97 uIU/ml (0.34-5.60) 04/24/19 19:30 Urine Source CLEAN C 04/24/19 19:40 Urine Color YELLOW 04/24/19 19:40 Urine Clarity CLEAR (CLEAR) 04/24/19 19:40 Urine pH 6.0 (4.6 - 8.0) 04/24/19 19:40 Ur Specific [place] >= 1.030 (1.005-1.030) 04/24/19 19:40 Urine Protein NEGATIVE mg/dL (NEGATIVE) 04/24/19 19:40 Urine Glucose (UA) NEGATIVE mg/dL (NEGATIVE) 04/24/19 19:40 Urine Ketones NEGATIVE mg/dL (NEGATIVE) 04/24/19 19:40 Urine Blood NEGATIVE (NEGATIVE) 04/24/19 19:40 Urine Nitrate NEGATIVE (NEGATIVE) 04/24/19 19:40 Urine Bilirubin NEGATIVE (NEGATIVE) 04/24/19 19:40 Urine Urobilinogen 1.0 E.U./dL (0.2 - 1.0) 04/24/19 19:40 Ur Leukocyte Esterase NEGATIVE (NEGATIVE) 04/24/19 19:40 Urine RBC 0-2 /hpf (0-5) H 04/24/19 19:40 Urine WBC 0-2 /hpf (0-5) 04/24/19 19:40 Ur Epithelial Cells NONE SEEN /lpf (FEW) 04/24/19 19:40 Urine Bacteria FEW /hpf (NONE SEEN) 04/24/19 19:40 RPR NONREACTIVE (NONREACTIVE) 04/24/19 19:30 - Physical Exam Vitals and I&O: Vital Signs Temp 97.4 F 04/26/19 15:03 Pulse 92 04/26/19 15:03 Resp 20 04/26/19 15:03 BP 132/94 04/26/19 15:03 Pulse Ox 95 04/26/19 15:03 Intake & Output 04/25/19 04/26/19 04/26/19 18:59 06:59 18:59 Intake Total 1200 Balance 1200 Intake: Oral 1200 Other: # Bowel Movements 1 Active Medications: Current Medications Acetaminophen (Tylenol) 650 mg PO Q4H PRN PRN Reason: Pain Or Fever above 101 Stop: 06/23/19 21:47 Last Admin: 04/26/19 01:00 Dose: 650 mg Acetaminophen/Hydrocodone Bitart ([place] 5mg/325mg) 1 tab PO Q8H PRN PRN Reason: Pain (Severe) Stop: 06/23/19 21:47 Al Hydrox/Mg Hydrox/Simethicone (Maalox) 30 ml PO Q6H PRN PRN Reason: Dyspepsia Stop: 06/23/19 21:47 Albuterol Sulfate (Albuterol 2.5mg/3ml Neb Ud) 2.5 mg HHN Q2HRT PRN PRN Reason: Shortness of Breath or Wheeze Stop: 06/23/19 21:47 Dextrose (D50w) 50 ml IVP PRN PRN PRN Reason: Blood Glucose less than 70 Stop: 06/24/19 12:45 Dextrose (Glutose 40%) 18.75 gm PO PRN PRN PRN Reason: Blood Glucose less than 70 Stop: 06/24/19 12:45 Gabapentin (Neurontin) 300 mg PO BID [facility] Stop: 06/24/19 08:59 Last Admin: 04/26/19 16:17 Dose: 300 mg Glucagon (Glucagen) 1 mg IM PRN PRN PRN Reason: Blood Glucose less than 70 Stop: 06/24/19 12:45 Guaifenesin (Robitussin) 200 mg PO Q4HR PRN PRN Reason: Cough or Congestion Stop: 06/23/19 21:47 Insulin Human Lispro (Humalog Insulin Sliding Scale) 0 units SUBQ QDAC [facility]; Protocol Stop: 06/25/19 07:29 Last Admin: 04/26/19 06:29 Dose: Not Given Ipratropium [place] (Atrovent Neb 0.5mg/2.5ml) 0.5 mg HHN Q2HRT PRN PRN Reason: Shortness of Breath or Wheeze Stop: 06/23/19 21:47 [place] Carbonate (Eskalith) 600 mg PO BID [facility]; Protocol Stop: 06/24/19 08:59 Last Admin: 04/26/19 16:17 Dose: 600 mg Lorazepam (Ativan) 1 mg PO Q6H PRN; Protocol PRN Reason: Anxiety/Agitation Stop: 06/23/19 21:47 Magnesium Hydroxide (Milk Of Magnesia) 30 ml PO HS PRN PRN Reason: Constipation Stop: 06/23/19 21:47 Multivitamins/Vitamin C (Theragran) 1 tab PO DAILY [facility] Stop: 06/24/19 08:59 Last Admin: 04/26/19 08:30 Dose: 1 tab Quetiapine Fumarate (Seroquel) 400 mg PO BID [facility]; Protocol Stop: 06/24/19 08:59 Last Admin: 04/26/19 16:17 Dose: 400 mg Zolpidem Tartrate (Ambien) 5 mg PO HS PRN PRN Reason: Insomnia Stop: 06/23/19 21:47 General: alert HEENT: NC/AT, PERRLA Neck: Supple Lungs: CTAB Cardiovascular: RRR, Normal S1, Normal S2, without murmur Abdomen: soft, non-tender, non-distended, positive bowel sound Extremities: excoriation Internal Medicine Assmt/Plan - Assessment Assessment: dm2 hypercalcemia elevated lft low albumin psychosis obesity oa chronic pain syndrome - Plan Plan: fall precautions monitor glucose closely continue current plan of care
--- NOTE | 2019-04-26 21:31 | Consultation ---
DATE OF CONSULTATION: 04/26/2019 REFERRING PHYSICIAN: Jenn Silva M.D. TYPE OF CONSULTATION: Psychology. HISTORY OF PRESENT ILLNESS: The patient is a 54-year-old male. The patient is a resident of [facility]. The following is by review of the medical record and by the patient's self report. The patient is being admitted due to aggressive behavior and acute agitation. Upon interview, the patient states that he does not understand why he needs to be in the hospital. The staff at the patient's facility states that he has been easily irritable and angry. Review of the record indicates that the patient has a previous hospitalization here. The patient did not answer some of the clinical interview questions and was easily frustrated. PAST MEDICAL HISTORY: Please see history and physical by Dr. Lloyd. PAST PSYCHIATRIC HISTORY: The patient has a previous hospitalization here in November 2018. The patient is under the care of Dr. Ceballos at his placement. The patient has a history of schizoaffective disorder. SUBSTANCE ABUSE HISTORY: The patient denied any history of alcohol, tobacco or illicit drug use. PSYCHOSOCIAL HISTORY: The patient states no occupational history and that he has been disabled all of his adult life. The patient stated that he graduated high school. The patient states no specific faith affiliation. The patient is single with no children and has never been . The patient's father is involved in his care. The patient denied any history of physical or sexual abuse or any current legal problems. MENTAL STATUS EXAMINATION: The patient appears to be his stated age and is moderately obese. Attitude is superficially cooperative. Eye contact is fair. Mood is irritable. Affect is constricted. There are apparently mood swings. Speech is spontaneous. The patient also may be experiencing paranoid delusions. The patient endorsed the item of experiencing auditory hallucinations, but denied visual hallucinations. The patient's behavior has been difficult to redirect and is restless. The patient perseverated on being admitted to this hospital and does not understand why he has been hospitalized. Impulse control is inadequate. Concentration is poor. Sensorium is alert and oriented x 3. The patient's long-term memory seems to be intact. Short-term memory seems to be intact. The patient did not participate in the interpretation of proverbs. Insight is poor. Judgment is compromised. DIAGNOSTIC IMPRESSION: AXIS I: History of schizoaffective disorder, bipolar type. AXIS II: Deferred. AXIS III: Per Dr. Lloyd. TREATMENT PLAN: The patient has been seen by Dr. Silva for psychiatric evaluation and for the management of the patient's psychotropic medications. We will provide supportive psychotherapy to include reality orientation, differentiation and integration. We will provide limit setting as well as de-escalation. We will provide stress management for the patient to increase his frustration tolerance. We will encourage the patient to follow through with staff direction and to verbalize his concerns versus acting out. We will encourage the patient to demonstrate emotional and self-regulation. We will provide motivational enhancement for the patient to become compliant and stay compliant with all aspects of his care and treatment. We will provide coping strategies for chronic severe mental illness as well as for phase of life issues. We will follow up in 2 days to continue the present treatment. Thank you, Dr. Silva for this consult and the opportunity to participate in this patient's care. [facility]# [id number] [place]
--- NOTE | 2019-04-27 02:14 | Progress Notes ---
DATE: 04/26/2019 PSYCHIATRIC PROGRESS NOTE SUBJECTIVE: Staff was spoken to. The patient is interviewed. Mood is noted to be irritable. Affect is constricted. The patient is stating that the medication is making him too sleepy. The Risperdal was discontinued yesterday, but now he is saying that the Seroquel is making him too sleepy in the morning and he needs that one taken out. The patient has no insight into his illness. Coping skills are noted to be extremely poor. ASSESSMENT: The patient is still having acute mood swings and psychotic. PLAN: To continue the patient with the current medications and followup. JOB# [id number]
[2019-04-27] MEDS: Hydrocodone/APAP 5mg/325mg Tab PO PRN ×2 (05:43→15:22)
[2019-04-27] MEDS: INSULIN LISPRO SLIDING SCALE 100 UNITS/ML UNIT SUBQ SCH (06:39)
[2019-04-27] MEDS: Multivitamin Tab PO SCH (08:58)
--- NOTE | 2019-04-27 16:08 | Internal Medicine Prog Note ---
Internal Medicine Subjective - Subjective Service Date: 04/27/19 Patient is:: awake Per staff patient has:: tolerating meds Internal Medicine Objective - Results Result Diagrams: 04/24/19 19:30 04/24/19 19: Recent Labs: Laboratory Last Values WBC 7.9 Th/cmm (4.8-10.8) 04/24/19 19: RBC 4.93 Mil/cmm (4.30-5.70) 04/24/19 19: Hgb 16.0 gm/dL (12-16) 04/24/19 19: Hct 46.4 % (41.0-60) 04/24/19: MCV 93.9 fl (80-99) 04/24/19: MCH 32.5 pg (26.0-30.0) H 04/24/19: MCHC Differential 34.6 pg (28.0-36.0) 04/24/19: RDW 13.7 % (11.5-20.0) 04/24/19: Plt Count 200 Th/cmm (150-400) 04/24/19 19: MPV 7.5 fl 04/24/19:30 Neutrophils % 61.6 % (40.0-80.0) 04/24/19: Lymphocytes % 27.1 % (20.0-50.0) 04/24/19: Monocytes % 8.0 % (2.0-10.0) 04/24/19: Eosinophils % 3.0 % (0.0-5.0) 04/24/19: Basophils % 0.3 % (0.0-2.0) 04/24/19:30 Sodium 136 mEq/L (136-145) 04/24/19: Potassium 4.1 mEq/L (3.5-5.1) 04/24/19: Chloride 104 mEq/L (98-107) 04/24/19: Carbon Dioxide 25.5 mEq/L (21.0-31.0) 04/24/19: Anion Gap 10.6 (7.0-16.0) 04/24/19 19:30 BUN 19 mg/dL (7-25) 04/24/19 19:30 Creatinine 1.0 mg/dL (0.7-1.3) 04/24/19 19:30 Est GFR ( Amer) > 60.0 ml/min (>90) 04/24/19 19:30 Est GFR (Non-Af Amer) > 60.0 ml/min 04/24/19 19:30 BUN/Creatinine Ratio 19.0 04/24/19 19:30 Glucose 181 mg/dL (70-105) H 04/24/19 19:30 Calcium 10.9 mg/dL (8.6-10.3) H 04/24/19 19:30 Total Bilirubin 0.4 mg/dL (0.3-1.0) 04/24/19 19:30 AST 50 U/L (13-39) H 04/24/19 19:30 ALT 112 U/L (7-52) H 04/24/19 19:30 Alkaline Phosphatase 95 U/L (34-104) 04/24/19 19:30 Total Protein 6.8 gm/dL (6.0-8.3) 04/24/19 19:30 Albumin 3.8 gm/dL (4.2-5.5) L 04/24/19 19:30 Globulin 3.0 gm/dL 04/24/19 19:30 Albumin/Globulin Ratio 1.3 (1.0-1.8) 04/24/19 19:30 Triglycerides 214 mg/dL (<150) H 04/24/19 19:30 Cholesterol 161 mg/dL (<200) 04/24/19 19:30 LDL Cholesterol Direct 118 mg/dL (75-193) 04/24/19 19:30 HDL Cholesterol 30 mg/dL (23-92) 04/24/19 19:30 TSH 2.97 uIU/ml (0.34-5.60) 04/24/19 19:30 Urine Source CLEAN C 04/24/19 19:40 Urine Color YELLOW 04/24/19 19:40 Urine Clarity CLEAR (CLEAR) 04/24/19 19:40 Urine pH 6.0 (4.6 - 8.0) 04/24/19 19:40 Ur Specific [place] >= 1.030 (1.005-1.030) 04/24/19 19:40 Urine Protein NEGATIVE mg/dL (NEGATIVE) 04/24/19 19:40 Urine Glucose (UA) NEGATIVE mg/dL (NEGATIVE) 04/24/19 19:40 Urine Ketones NEGATIVE mg/dL (NEGATIVE) 04/24/19 19:40 Urine Blood NEGATIVE (NEGATIVE) 04/24/19 19:40 Urine Nitrate NEGATIVE (NEGATIVE) 04/24/19 19:40 Urine Bilirubin NEGATIVE (NEGATIVE) 04/24/19 19:40 Urine Urobilinogen 1.0 E.U./dL (0.2 - 1.0) 04/24/19 19:40 Ur Leukocyte Esterase NEGATIVE (NEGATIVE) 04/24/19 19:40 Urine RBC 0-2 /hpf (0-5) H 04/24/19 19:40 Urine WBC 0-2 /hpf (0-5) 04/24/19 19:40 Ur Epithelial Cells NONE SEEN /lpf (FEW) 04/24/19 19:40 Urine Bacteria FEW /hpf (NONE SEEN) 04/24/19 19:40 RPR NONREACTIVE (NONREACTIVE) 04/24/19 19:30 - Physical Exam Vitals and I&O: Vital Signs Temp 98.1 F 04/27/19 14:56 Pulse 91 04/27/19 14:56 Resp 20 04/27/19 14:56 BP 121/80 04/27/19 14:56 Pulse Ox 96 04/27/19 14:56 Intake & Output 04/26/19 04/27/19 04/27/19 18:59 06:59 18:59 Intake Total 2100 240 Output Total 3 Balance 2097 240 Intake: Oral 1600 240 Other 500 Output: Urine 3 Other: # Voids 2 Active Medications: Current Medications Acetaminophen (Tylenol) 650 mg PO Q4H PRN PRN Reason: Pain Or Fever above 101 Stop: 06/23/19 21:47 Last Admin: 04/26/19 17:40 Dose: 650 mg Acetaminophen/Hydrocodone Bitart ([place] 5mg/325mg) 1 tab PO Q8H PRN PRN Reason: Pain (Severe) Stop: 06/23/19 21:47 Last Admin: 04/27/19 15:22 Dose: 1 tab Al Hydrox/Mg Hydrox/Simethicone (Maalox) 30 ml PO Q6H PRN PRN Reason: Dyspepsia Stop: 06/23/19 21:47 Albuterol Sulfate (Albuterol 2.5mg/3ml Neb Ud) 2.5 mg HHN Q2HRT PRN PRN Reason: Shortness of Breath or Wheeze Stop: 06/23/19 21:47 Dextrose (D50w) 50 ml IVP PRN PRN PRN Reason: Blood Glucose less than 70 Stop: 06/24/19 12:45 Dextrose (Glutose 40%) 18.75 gm PO PRN PRN PRN Reason: Blood Glucose less than 70 Stop: 06/24/19 12:45 Gabapentin (Neurontin) 300 mg PO BID [facility] Stop: 06/24/19 08:59 Last Admin: 04/27/19 08:58 Dose: 300 mg Glucagon (Glucagen) 1 mg IM PRN PRN PRN Reason: Blood Glucose less than 70 Stop: 06/24/19 12:45 Guaifenesin (Robitussin) 200 mg PO Q4HR PRN PRN Reason: Cough or Congestion Stop: 06/23/19 21:47 Insulin Human Lispro (Humalog Insulin Sliding Scale) 0 units SUBQ QDAC [facility]; Protocol Stop: 06/25/19 07:29 Last Admin: 04/27/19 06:39 Dose: Not Given Ipratropium [place] (Atrovent Neb 0.5mg/2.5ml) 0.5 mg HHN Q2HRT PRN PRN Reason: Shortness of Breath or Wheeze Stop: 06/23/19 21:47 [place] Carbonate (Eskalith) 600 mg PO BID [facility]; Protocol Stop: 06/24/19 08:59 Last Admin: 04/27/19 08:58 Dose: 600 mg Lorazepam (Ativan) 1 mg PO Q6H PRN; Protocol PRN Reason: Anxiety/Agitation Stop: 06/23/19 21:47 Magnesium Hydroxide (Milk Of Magnesia) 30 ml PO HS PRN PRN Reason: Constipation Stop: 06/23/19 21:47 Multivitamins/Vitamin C (Theragran) 1 tab PO DAILY [facility] Stop: 06/24/19 08:59 Last Admin: 04/27/19 08:58 Dose: 1 tab Quetiapine Fumarate (Seroquel) 400 mg PO BID [facility]; Protocol Stop: 06/24/19 08:59 Last Admin: 04/27/19 09:01 Dose: 400 mg Zolpidem Tartrate (Ambien) 5 mg PO HS PRN PRN Reason: Insomnia Stop: 06/23/19 21:47 General: alert HEENT: NC/AT, PERRLA Neck: Supple Lungs: CTAB Cardiovascular: RRR, Normal S1, Normal S2, without murmur Abdomen: soft, non-tender, non-distended, positive bowel sound Extremities: excoriation Internal Medicine Assmt/Plan - Assessment Assessment: dm2 hypercalcemia elevated lft low albumin psychosis obesity oa chronic pain syndrome - Plan Plan: fall precautions monitor glucose closely continue current plan of care
--- NOTE | 2019-04-28 01:10 | Progress Notes ---
DATE: 04/27/2019 SUBJECTIVE: Staff was spoken to. The patient is interviewed. Mood is noted to be irritable. Affect is constricted. The patient is stating that he is getting too much of medication. The patient has no insight into his illness. Initially, he was demanding that the Risperdal be discontinued. After that one, he states that he should not be on the Seroquel. The patient has been having acute mood swings at this time. The patient is however, being redirected and the patient's impulsivity is a major concern. The patient is denying any current hallucinations. ASSESSMENT: The patient is still psychotic. PLAN: To continue the patient with the Seroquel and Depakote. I encouraged the patient to verbalize the concerns rather than to act out. JOB# [id number]
[2019-04-28] MEDS: Hydrocodone/APAP 5mg/325mg Tab PO PRN (03:42)
[2019-04-28] MEDS: INSULIN LISPRO SLIDING SCALE 100 UNITS/ML UNIT SUBQ SCH (07:04)
[2019-04-28] MEDS: Multivitamin Tab PO SCH (08:18)
--- NOTE | 2019-04-28 12:24 | Internal Medicine Prog Note ---
Internal Medicine Subjective - Subjective Patient seen and examined:: with staff, chart reviewed Patient is:: awake, verbal, interactive, in wheelchair Per staff patient has:: no adverse event, no episodes of fall, unstable gait, tolerating meds Internal Medicine Objective - Results Result Diagrams: 04/24/19 19:30 04/24/19 19: Recent Labs: Laboratory Last Values WBC 7.9 Th/cmm (4.8-10.8) 04/24/19: RBC 4.93 Mil/cmm (4.30-5.70) 04/24/19: Hgb 16.0 gm/dL (12-16) 04/24/19: Hct 46.4 % (41.0-60) 04/24/19: MCV 93.9 fl (80-99) 04/24/19: MCH 32.5 pg (26.0-30.0) H 04/24/19: MCHC Differential 34.6 pg (28.0-36.0) 04/24/19: RDW 13.7 % (11.5-20.0) 04/24/19: Plt Count 200 Th/cmm (150-400) 04/24/19: MPV 7.5 fl 04/24/19: Neutrophils % 61.6 % (40.0-80.0) 04/24/19: Lymphocytes % 27.1 % (20.0-50.0) 04/24/19: Monocytes % 8.0 % (2.0-10.0) 04/24/19: Eosinophils % 3.0 % (0.0-5.0) 04/24/19: Basophils % 0.3 % (0.0-2.0) 04/24/19: Sodium 136 mEq/L (136-145) 04/24/19: Potassium 4.1 mEq/L (3.5-5.1) 04/24/19: Chloride 104 mEq/L (98-107) 04/24/19: Carbon Dioxide 25.5 mEq/L (21.0-31.0) 04/24/19: Anion Gap 10.6 (7.0-16.0) 04/24/19 19:30 BUN 19 mg/dL (7-25) 04/24/19 19:30 Creatinine 1.0 mg/dL (0.7-1.3) 04/24/19 19:30 Est GFR ( Amer) > 60.0 ml/min (>90) 04/24/19 19:30 Est GFR (Non-Af Amer) > 60.0 ml/min 04/24/19 19:30 BUN/Creatinine Ratio 19.0 04/24/19 19:30 Glucose 181 mg/dL (70-105) H 04/24/19 19:30 Calcium 10.9 mg/dL (8.6-10.3) H 04/24/19 19:30 Total Bilirubin 0.4 mg/dL (0.3-1.0) 04/24/19 19:30 AST 50 U/L (13-39) H 04/24/19 19:30 ALT 112 U/L (7-52) H 04/24/19 19:30 Alkaline Phosphatase 95 U/L (34-104) 04/24/19 19:30 Total Protein 6.8 gm/dL (6.0-8.3) 04/24/19 19:30 Albumin 3.8 gm/dL (4.2-5.5) L 04/24/19 19:30 Globulin 3.0 gm/dL 04/24/19 19:30 Albumin/Globulin Ratio 1.3 (1.0-1.8) 04/24/19 19:30 Triglycerides 214 mg/dL (<150) H 04/24/19 19:30 Cholesterol 161 mg/dL (<200) 04/24/19 19:30 LDL Cholesterol Direct 118 mg/dL (75-193) 04/24/19 19:30 HDL Cholesterol 30 mg/dL (23-92) 04/24/19 19:30 TSH 2.97 uIU/ml (0.34-5.60) 04/24/19 19:30 Urine Source CLEAN C 04/24/19 19:40 Urine Color YELLOW 04/24/19 19:40 Urine Clarity CLEAR (CLEAR) 04/24/19 19:40 Urine pH 6.0 (4.6 - 8.0) 04/24/19 19:40 Ur Specific [place] >= 1.030 (1.005-1.030) 04/24/19 19:40 Urine Protein NEGATIVE mg/dL (NEGATIVE) 04/24/19 19:40 Urine Glucose (UA) NEGATIVE mg/dL (NEGATIVE) 04/24/19 19:40 Urine Ketones NEGATIVE mg/dL (NEGATIVE) 04/24/19 19:40 Urine Blood NEGATIVE (NEGATIVE) 04/24/19 19:40 Urine Nitrate NEGATIVE (NEGATIVE) 04/24/19 19:40 Urine Bilirubin NEGATIVE (NEGATIVE) 04/24/19 19:40 Urine Urobilinogen 1.0 E.U./dL (0.2 - 1.0) 04/24/19 19:40 Ur Leukocyte Esterase NEGATIVE (NEGATIVE) 04/24/19 19:40 Urine RBC 0-2 /hpf (0-5) H 04/24/19 19:40 Urine WBC 0-2 /hpf (0-5) 04/24/19 19:40 Ur Epithelial Cells NONE SEEN /lpf (FEW) 04/24/19 19:40 Urine Bacteria FEW /hpf (NONE SEEN) 04/24/19 19:40 RPR NONREACTIVE (NONREACTIVE) 04/24/19 19:30 - Physical Exam Vitals and I&O: Vital Signs Temp 98.2 F 04/27/19 21:38 Pulse 76 04/28/19 07:54 Resp 20 04/28/19 07:54 BP 115/74 04/27/19 21:38 Pulse Ox 96 04/28/19 07:54 Intake & Output 04/27/19 04/28/19 04/28/19 18:59 06:59 18:59 Intake Total 1000 120 Balance 1000 120 Intake: Oral 1000 120 Other: # Voids 4 2 # Bowel Movements 1 0 Active Medications: Current Medications Acetaminophen (Tylenol) 650 mg PO Q4H PRN PRN Reason: Pain Or Fever above 101 Stop: 06/23/19 21:47 Last Admin: 04/26/19 17:40 Dose: 650 mg Acetaminophen/Hydrocodone Bitart ([place] 5mg/325mg) 1 tab PO Q8H PRN PRN Reason: Pain (Severe) Stop: 06/23/19 21:47 Last Admin: 04/28/19 03:42 Dose: 1 tab Al Hydrox/Mg Hydrox/Simethicone (Maalox) 30 ml PO Q6H PRN PRN Reason: Dyspepsia Stop: 06/23/19 21:47 Albuterol Sulfate (Albuterol 2.5mg/3ml Neb Ud) 2.5 mg HHN Q2HRT PRN PRN Reason: Shortness of Breath or Wheeze Stop: 06/23/19 21:47 Dextrose (D50w) 50 ml IVP PRN PRN PRN Reason: Blood Glucose less than 70 Stop: 06/24/19 12:45 Dextrose (Glutose 40%) 18.75 gm PO PRN PRN PRN Reason: Blood Glucose less than 70 Stop: 06/24/19 12:45 Gabapentin (Neurontin) 300 mg PO BID [facility] Stop: 06/24/19 08:59 Last Admin: 04/28/19 08:19 Dose: 300 mg Glucagon (Glucagen) 1 mg IM PRN PRN PRN Reason: Blood Glucose less than 70 Stop: 06/24/19 12:45 Guaifenesin (Robitussin) 200 mg PO Q4HR PRN PRN Reason: Cough or Congestion Stop: 06/23/19 21:47 Insulin Human Lispro (Humalog Insulin Sliding Scale) 0 units SUBQ QDAC [facility]; Protocol Stop: 06/25/19 07:29 Last Admin: 04/28/19 07:04 Dose: Not Given Ipratropium [place] (Atrovent Neb 0.5mg/2.5ml) 0.5 mg HHN Q2HRT PRN PRN Reason: Shortness of Breath or Wheeze Stop: 06/23/19 21:47 [place] Carbonate (Eskalith) 600 mg PO BID [facility]; Protocol Stop: 06/24/19 08:59 Last Admin: 04/28/19 08:19 Dose: 600 mg Lorazepam (Ativan) 1 mg PO Q6H PRN; Protocol PRN Reason: Anxiety/Agitation Stop: 06/23/19 21:47 Magnesium Hydroxide (Milk Of Magnesia) 30 ml PO HS PRN PRN Reason: Constipation Stop: 06/23/19 21:47 Multivitamins/Vitamin C (Theragran) 1 tab PO DAILY WALTER Stop: 06/24/19 08:59 Last Admin: 04/28/19 08:18 Dose: 1 tab Quetiapine Fumarate (Seroquel) 400 mg PO BID WALTER; Protocol Stop: 06/24/19 08:59 Last Admin: 04/28/19 08:18 Dose: 400 mg Zolpidem Tartrate (Ambien) 5 mg PO HS PRN PRN Reason: Insomnia Stop: 06/23/19 21:47 General: alert HEENT: NC/AT, PERRLA Neck: Supple Lungs: CTAB Cardiovascular: RRR, Normal S1, Normal S2, without murmur Abdomen: soft, non-tender, non-distended, positive bowel sound Extremities: excoriation Neurological: no change Internal Medicine Assmt/Plan - Assessment Assessment: ASSESSMENT AND PLAN: Diabetes, hypercalcemia, elevated liver function tests, low albumin, psych disorder, obesity, osteoarthritis, chronic pain syndrome. - Plan Plan: PLAN: . We will check the patient's hemoglobin A1c as well as fingerstick ____ once a day. Continue insulin sliding scale. We will monitor the liver function test. We will provide the patient nonsteroidal anti-inflammatory drugs. We will continue to monitor the patient closely with you.
--- NOTE | 2019-04-29 01:33 | Progress Notes ---
DATE: 04/28/2019 PSYCHOLOGY PROGRESS NOTE SUBJECTIVE: The patient is seen and is interviewed. Case is discussed with staff. The patient continues to present as guarded and irritable. The patient complained about his medication and stated that he believes he is getting the wrong dosage and is getting too much of his medication. The patient continues to display mood fluctuations. OBJECTIVE: Mood is irritable and fluctuating. Affect is constricted. Thought process shows to be confused. The patient denied any hallucinations or delusions. The patient's behavior has been compliant with his p.o. medications. ASSESSMENT AND PLAN: The patient's psychosis persists. We provided reality orientation, differentiation and integration. We encouraged the patient to demonstrate emotional and self-regulation by verbalizing his concerns versus acting out. We provided remotivation for the patient to stay compliant with his care and treatment. We provided coping strategies for phase of life issues. We will follow up in 2 days to continue the present treatment if the patient remains admitted on the unit. [facility]# [id number] [place]
--- NOTE | 2019-04-29 02:53 | Progress Notes ---
DATE: 04/28/2019 PSYCHIATRIC PROGRESS NOTE SUBJECTIVE: Staff was spoken to. The patient is interviewed. Mood is noted to be irritable. Affect is constricted. Insight and judgment at this time are noted to be still impaired. Impulse control is noted to be limited. Coping skills, the patient gets easily frustrated and tends to snap at the staff members. The patient needs to be redirected. The patient has been so far compliant with the medication. He did not like the Risperdal. He wants to continue the Seroquel and he wants all the Seroquel to be given at night time. The patient has been explained about the pros and cons of it and the patient at this time is willing to comply with the medication. PLAN: To continue the patient with the current medications and follow. JOB# [id number]
[2019-04-29] MEDS: INSULIN LISPRO SLIDING SCALE 100 UNITS/ML UNIT SUBQ SCH (06:38)
[2019-04-29] MEDS: Multivitamin Tab PO SCH (08:55)
--- NOTE | 2019-04-29 12:31 | Internal Medicine Prog Note ---
Internal Medicine Subjective - Subjective Patient seen and examined:: with staff, chart reviewed Patient is:: awake, verbal, interactive, in wheelchair Per staff patient has:: no adverse event, no episodes of fall, unstable gait, tolerating meds Internal Medicine Objective - Results Result Diagrams: 04/24/19 19:30 04/24/19 19: Recent Labs: Laboratory Last Values WBC 7.9 Th/cmm (4.8-10.8) 04/24/19: RBC 4.93 Mil/cmm (4.30-5.70) 04/24/19: Hgb 16.0 gm/dL (12-16) 04/24/19: Hct 46.4 % (41.0-60) 04/24/19: MCV 93.9 fl (80-99) 04/24/19: MCH 32.5 pg (26.0-30.0) H 04/24/19: MCHC Differential 34.6 pg (28.0-36.0) 04/24/19: RDW 13.7 % (11.5-20.0) 04/24/19: Plt Count 200 Th/cmm (150-400) 04/24/19: MPV 7.5 fl 04/24/19: Neutrophils % 61.6 % (40.0-80.0) 04/24/19: Lymphocytes % 27.1 % (20.0-50.0) 04/24/19: Monocytes % 8.0 % (2.0-10.0) 04/24/19: Eosinophils % 3.0 % (0.0-5.0) 04/24/19: Basophils % 0.3 % (0.0-2.0) 04/24/19: Sodium 136 mEq/L (136-145) 04/24/19: Potassium 4.1 mEq/L (3.5-5.1) 04/24/19: Chloride 104 mEq/L (98-107) 04/24/19: Carbon Dioxide 25.5 mEq/L (21.0-31.0) 04/24/19: Anion Gap 10.6 (7.0-16.0) 04/24/19 19:30 BUN 19 mg/dL (7-25) 04/24/19 19:30 Creatinine 1.0 mg/dL (0.7-1.3) 04/24/19 19:30 Est GFR ( Amer) > 60.0 ml/min (>90) 04/24/19 19:30 Est GFR (Non-Af Amer) > 60.0 ml/min 04/24/19 19:30 BUN/Creatinine Ratio 19.0 04/24/19 19:30 Glucose 181 mg/dL (70-105) H 04/24/19 19:30 Calcium 10.9 mg/dL (8.6-10.3) H 04/24/19 19:30 Total Bilirubin 0.4 mg/dL (0.3-1.0) 04/24/19 19:30 AST 50 U/L (13-39) H 04/24/19 19:30 ALT 112 U/L (7-52) H 04/24/19 19:30 Alkaline Phosphatase 95 U/L (34-104) 04/24/19 19:30 Total Protein 6.8 gm/dL (6.0-8.3) 04/24/19 19:30 Albumin 3.8 gm/dL (4.2-5.5) L 04/24/19 19:30 Globulin 3.0 gm/dL 04/24/19 19:30 Albumin/Globulin Ratio 1.3 (1.0-1.8) 04/24/19 19:30 Triglycerides 214 mg/dL (<150) H 04/24/19 19:30 Cholesterol 161 mg/dL (<200) 04/24/19 19:30 LDL Cholesterol Direct 118 mg/dL (75-193) 04/24/19 19:30 HDL Cholesterol 30 mg/dL (23-92) 04/24/19 19:30 TSH 2.97 uIU/ml (0.34-5.60) 04/24/19 19:30 Urine Source CLEAN C 04/24/19 19:40 Urine Color YELLOW 04/24/19 19:40 Urine Clarity CLEAR (CLEAR) 04/24/19 19:40 Urine pH 6.0 (4.6 - 8.0) 04/24/19 19:40 Ur Specific [place] >= 1.030 (1.005-1.030) 04/24/19 19:40 Urine Protein NEGATIVE mg/dL (NEGATIVE) 04/24/19 19:40 Urine Glucose (UA) NEGATIVE mg/dL (NEGATIVE) 04/24/19 19:40 Urine Ketones NEGATIVE mg/dL (NEGATIVE) 04/24/19 19:40 Urine Blood NEGATIVE (NEGATIVE) 04/24/19 19:40 Urine Nitrate NEGATIVE (NEGATIVE) 04/24/19 19:40 Urine Bilirubin NEGATIVE (NEGATIVE) 04/24/19 19:40 Urine Urobilinogen 1.0 E.U./dL (0.2 - 1.0) 04/24/19 19:40 Ur Leukocyte Esterase NEGATIVE (NEGATIVE) 04/24/19 19:40 Urine RBC 0-2 /hpf (0-5) H 04/24/19 19:40 Urine WBC 0-2 /hpf (0-5) 04/24/19 19:40 Ur Epithelial Cells NONE SEEN /lpf (FEW) 04/24/19 19:40 Urine Bacteria FEW /hpf (NONE SEEN) 04/24/19 19:40 RPR NONREACTIVE (NONREACTIVE) 04/24/19 19:30 - Physical Exam Vitals and I&O: Vital Signs Temp 98.3 F 04/29/19 05:39 Pulse 80 04/29/19 07:53 Resp 18 04/29/19 07:53 BP 127/68 04/29/19 05:39 Pulse Ox 95 04/29/19 07:53 Intake & Output 04/28/19 04/29/19 04/29/19 18:59 06:59 18:59 Intake Total 1400 240 Balance 1400 240 Intake: Oral 1400 240 Other: # Voids 4 2 # Bowel Movements 0 Active Medications: Current Medications Acetaminophen (Tylenol) 650 mg PO Q4H PRN PRN Reason: Pain Or Fever above 101 Stop: 06/23/19 21:47 Last Admin: 04/26/19 17:40 Dose: 650 mg Acetaminophen/Hydrocodone Bitart ([place] 5mg/325mg) 1 tab PO Q8H PRN PRN Reason: Pain (Severe) Stop: 06/23/19 21:47 Last Admin: 04/28/19 03:42 Dose: 1 tab Al Hydrox/Mg Hydrox/Simethicone (Maalox) 30 ml PO Q6H PRN PRN Reason: Dyspepsia Stop: 06/23/19 21:47 Albuterol Sulfate (Albuterol 2.5mg/3ml Neb Ud) 2.5 mg HHN Q2HRT PRN PRN Reason: Shortness of Breath or Wheeze Stop: 06/23/19 21:47 Dextrose (D50w) 50 ml IVP PRN PRN PRN Reason: Blood Glucose less than 70 Stop: 06/24/19 12:45 Dextrose (Glutose 40%) 18.75 gm PO PRN PRN PRN Reason: Blood Glucose less than 70 Stop: 06/24/19 12:45 Gabapentin (Neurontin) 300 mg PO BID WALTER Stop: 06/24/19 08:59 Last Admin: 04/29/19 08:56 Dose: 300 mg Glucagon (Glucagen) 1 mg IM PRN PRN PRN Reason: Blood Glucose less than 70 Stop: 06/24/19 12:45 Guaifenesin (Robitussin) 200 mg PO Q4HR PRN PRN Reason: Cough or Congestion Stop: 06/23/19 21:47 Insulin Human Lispro (Humalog Insulin Sliding Scale) 0 units SUBQ QDAC WALTER; Protocol Stop: 06/25/19 07:29 Last Admin: 04/29/19 06:38 Dose: Not Given Ipratropium [place] (Atrovent Neb 0.5mg/2.5ml) 0.5 mg HHN Q2HRT PRN PRN Reason: Shortness of Breath or Wheeze Stop: 06/23/19 21:47 [place] Carbonate (Eskalith) 600 mg PO BID WALTER; Protocol Stop: 06/24/19 08:59 Last Admin: 04/29/19 08:55 Dose: 600 mg Lorazepam (Ativan) 1 mg PO Q6H PRN; Protocol PRN Reason: Anxiety/Agitation Stop: 06/23/19 21:47 Magnesium Hydroxide (Milk Of Magnesia) 30 ml PO HS PRN PRN Reason: Constipation Stop: 06/23/19 21:47 Multivitamins/Vitamin C (Theragran) 1 tab PO DAILY WALTER Stop: 06/24/19 08:59 Last Admin: 04/29/19 08:55 Dose: 1 tab Quetiapine Fumarate (Seroquel) 400 mg PO BID WALTER; Protocol Stop: 06/24/19 08:59 Last Admin: 04/29/19 08:56 Dose: 400 mg Zolpidem Tartrate (Ambien) 5 mg PO HS PRN PRN Reason: Insomnia Stop: 06/23/19 21:47 General: alert HEENT: NC/AT, PERRLA Neck: Supple Lungs: CTAB Cardiovascular: RRR, Normal S1, Normal S2, without murmur Abdomen: soft, non-tender, non-distended, positive bowel sound Extremities: excoriation Neurological: no change Internal Medicine Assmt/Plan - Assessment Assessment: ASSESSMENT AND PLAN: Diabetes, hypercalcemia, elevated liver function tests, low albumin, psych disorder, obesity, osteoarthritis, chronic pain syndrome. - Plan Plan: PLAN: . We will check the patient's hemoglobin A1c as well as fingerstick ____ once a day. Continue insulin sliding scale. We will monitor the liver function test. We will provide the patient nonsteroidal anti-inflammatory drugs. We will continue to monitor the patient closely with you.
[2019-04-30] MEDS: INSULIN LISPRO SLIDING SCALE 100 UNITS/ML UNIT SUBQ SCH (07:39)
--- NOTE | 2019-04-30 09:05 | Progress Notes ---
DATE: 04/29/2019 SUBJECTIVE: Staff was spoken to. The patient is interviewed. Mood is noted to be anxious. The patient's coping skills are noted to be still poor. Insight and judgment are also noted to be very poor. The patient has been getting easily frustrated. The patient is stating that people are annoying him. The patient needs to be redirected. No side effects to the medications are noted at this time. Sleep and appetite are noted to be improving. ASSESSMENT: The patient is still impulsive and mood swings are still a concern. PLAN: To continue the patient with the supportive therapy and followup. JOB# [id number]
[2019-04-30] MEDS: Multivitamin Tab PO SCH (09:38)
--- NOTE | 2019-04-30 13:07 | Internal Medicine Prog Note ---
Internal Medicine Subjective - Subjective Patient seen and examined:: with staff, chart reviewed Patient is:: awake, verbal, interactive, in wheelchair Per staff patient has:: no adverse event, no episodes of fall, unstable gait, tolerating meds Internal Medicine Objective - Results Result Diagrams: 04/24/19 19:30 04/24/19 19: Recent Labs: Laboratory Last Values WBC 7.9 Th/cmm (4.8-10.8) 04/24/19: RBC 4.93 Mil/cmm (4.30-5.70) 04/24/19: Hgb 16.0 gm/dL (12-16) 04/24/19: Hct 46.4 % (41.0-60) 04/24/19: MCV 93.9 fl (80-99) 04/24/19: MCH 32.5 pg (26.0-30.0) H 04/24/19: MCHC Differential 34.6 pg (28.0-36.0) 04/24/19: RDW 13.7 % (11.5-20.0) 04/24/19: Plt Count 200 Th/cmm (150-400) 04/24/19: MPV 7.5 fl 04/24/19: Neutrophils % 61.6 % (40.0-80.0) 04/24/19: Lymphocytes % 27.1 % (20.0-50.0) 04/24/19: Monocytes % 8.0 % (2.0-10.0) 04/24/19: Eosinophils % 3.0 % (0.0-5.0) 04/24/19: Basophils % 0.3 % (0.0-2.0) 04/24/19: Sodium 136 mEq/L (136-145) 04/24/19: Potassium 4.1 mEq/L (3.5-5.1) 04/24/19: Chloride 104 mEq/L (98-107) 04/24/19: Carbon Dioxide 25.5 mEq/L (21.0-31.0) 04/24/19: Anion Gap 10.6 (7.0-16.0) 04/24/19 19:30 BUN 19 mg/dL (7-25) 04/24/19 19:30 Creatinine 1.0 mg/dL (0.7-1.3) 04/24/19 19:30 Est GFR ( Amer) > 60.0 ml/min (>90) 04/24/19 19:30 Est GFR (Non-Af Amer) > 60.0 ml/min 04/24/19 19:30 BUN/Creatinine Ratio 19.0 04/24/19 19:30 Glucose 181 mg/dL (70-105) H 04/24/19 19:30 Calcium 10.9 mg/dL (8.6-10.3) H 04/24/19 19:30 Total Bilirubin 0.4 mg/dL (0.3-1.0) 04/24/19 19:30 AST 50 U/L (13-39) H 04/24/19 19:30 ALT 112 U/L (7-52) H 04/24/19 19:30 Alkaline Phosphatase 95 U/L (34-104) 04/24/19 19:30 Total Protein 6.8 gm/dL (6.0-8.3) 04/24/19 19:30 Albumin 3.8 gm/dL (4.2-5.5) L 04/24/19 19:30 Globulin 3.0 gm/dL 04/24/19 19:30 Albumin/Globulin Ratio 1.3 (1.0-1.8) 04/24/19 19:30 Triglycerides 214 mg/dL (<150) H 04/24/19 19:30 Cholesterol 161 mg/dL (<200) 04/24/19 19:30 LDL Cholesterol Direct 118 mg/dL (75-193) 04/24/19 19:30 HDL Cholesterol 30 mg/dL (23-92) 04/24/19 19:30 TSH 2.97 uIU/ml (0.34-5.60) 04/24/19 19:30 Urine Source CLEAN C 04/24/19 19:40 Urine Color YELLOW 04/24/19 19:40 Urine Clarity CLEAR (CLEAR) 04/24/19 19:40 Urine pH 6.0 (4.6 - 8.0) 04/24/19 19:40 Ur Specific [place] >= 1.030 (1.005-1.030) 04/24/19 19:40 Urine Protein NEGATIVE mg/dL (NEGATIVE) 04/24/19 19:40 Urine Glucose (UA) NEGATIVE mg/dL (NEGATIVE) 04/24/19 19:40 Urine Ketones NEGATIVE mg/dL (NEGATIVE) 04/24/19 19:40 Urine Blood NEGATIVE (NEGATIVE) 04/24/19 19:40 Urine Nitrate NEGATIVE (NEGATIVE) 04/24/19 19:40 Urine Bilirubin NEGATIVE (NEGATIVE) 04/24/19 19:40 Urine Urobilinogen 1.0 E.U./dL (0.2 - 1.0) 04/24/19 19:40 Ur Leukocyte Esterase NEGATIVE (NEGATIVE) 04/24/19 19:40 Urine RBC 0-2 /hpf (0-5) H 04/24/19 19:40 Urine WBC 0-2 /hpf (0-5) 04/24/19 19:40 Ur Epithelial Cells NONE SEEN /lpf (FEW) 04/24/19 19:40 Urine Bacteria FEW /hpf (NONE SEEN) 04/24/19 19:40 RPR NONREACTIVE (NONREACTIVE) 04/24/19 19:30 - Physical Exam Vitals and I&O: Vital Signs Temp 98.0 F 04/30/19 04:42 Pulse 83 04/30/19 07:17 Resp 18 04/30/19 07:18 BP 103/65 04/30/19 04:42 Pulse Ox 95 04/30/19 07:17 Intake & Output 04/29/19 04/30/19 04/30/19 18:59 06:59 18:59 Intake Total 1800 480 Balance 1800 480 Intake: Oral 1800 480 Other: # Voids 4 2 # Bowel Movements 0 Active Medications: Current Medications Acetaminophen (Tylenol) 650 mg PO Q4H PRN PRN Reason: Pain Or Fever above 101 Stop: 06/23/19 21:47 Last Admin: 04/26/19 17:40 Dose: 650 mg Acetaminophen/Hydrocodone Bitart ([place] 5mg/325mg) 1 tab PO Q8H PRN PRN Reason: Pain (Severe) Stop: 06/23/19 21:47 Last Admin: 04/28/19 03:42 Dose: 1 tab Al Hydrox/Mg Hydrox/Simethicone (Maalox) 30 ml PO Q6H PRN PRN Reason: Dyspepsia Stop: 06/23/19 21:47 Albuterol Sulfate (Albuterol 2.5mg/3ml Neb Ud) 2.5 mg HHN Q2HRT PRN PRN Reason: Shortness of Breath or Wheeze Stop: 06/23/19 21:47 Dextrose (D50w) 50 ml IVP PRN PRN PRN Reason: Blood Glucose less than 70 Stop: 06/24/19 12:45 Dextrose (Glutose 40%) 18.75 gm PO PRN PRN PRN Reason: Blood Glucose less than 70 Stop: 06/24/19 12:45 Gabapentin (Neurontin) 300 mg PO BID WALTER Stop: 06/24/19 08:59 Last Admin: 04/30/19 09:38 Dose: 300 mg Glucagon (Glucagen) 1 mg IM PRN PRN PRN Reason: Blood Glucose less than 70 Stop: 06/24/19 12:45 Guaifenesin (Robitussin) 200 mg PO Q4HR PRN PRN Reason: Cough or Congestion Stop: 06/23/19 21:47 Insulin Human Lispro (Humalog Insulin Sliding Scale) 0 units SUBQ QDAC WALTER; Protocol Stop: 06/25/19 07:29 Last Admin: 04/30/19 07:39 Dose: Not Given Ipratropium [place] (Atrovent Neb 0.5mg/2.5ml) 0.5 mg HHN Q2HRT PRN PRN Reason: Shortness of Breath or Wheeze Stop: 06/23/19 21:47 [place] Carbonate (Eskalith) 600 mg PO BID WALTER; Protocol Stop: 06/24/19 08:59 Last Admin: 04/30/19 09:38 Dose: 600 mg Lorazepam (Ativan) 1 mg PO Q6H PRN; Protocol PRN Reason: Anxiety/Agitation Stop: 06/23/19 21:47 Magnesium Hydroxide (Milk Of Magnesia) 30 ml PO HS PRN PRN Reason: Constipation Stop: 06/23/19 21:47 Multivitamins/Vitamin C (Theragran) 1 tab PO DAILY WALTER Stop: 06/24/19 08:59 Last Admin: 04/30/19 09:38 Dose: 1 tab Quetiapine Fumarate (Seroquel) 400 mg PO BID WALTER; Protocol Stop: 06/24/19 08:59 Last Admin: 04/30/19 09:38 Dose: 400 mg Zolpidem Tartrate (Ambien) 5 mg PO HS PRN PRN Reason: Insomnia Stop: 06/23/19 21:47 General: alert HEENT: NC/AT, PERRLA Neck: Supple Lungs: CTAB Cardiovascular: RRR, Normal S1, Normal S2, without murmur Abdomen: soft, non-tender, non-distended, positive bowel sound Extremities: excoriation Neurological: no change Internal Medicine Assmt/Plan - Assessment Assessment: ASSESSMENT AND PLAN: Diabetes, hypercalcemia, elevated liver function tests, low albumin, psych disorder, obesity, osteoarthritis, chronic pain syndrome. - Plan Plan: PLAN: . We will check the patient's hemoglobin A1c as well as fingerstick ____ once a day. Continue insulin sliding scale. We will monitor the liver function test. We will provide the patient nonsteroidal anti-inflammatory drugs. We will continue to monitor the patient closely with you.
--- NOTE | 2019-04-30 22:57 | Progress Notes ---
DATE: 04/30/2019 PSYCHOLOGY PROGRESS NOTE SUBJECTIVE: The patient is seen and is interviewed. Case is discussed with staff. The patient presents to be more anxious during this visit. The patient also seems to be easily frustrated. He complained that the other patients and peers on the unit are annoying him. Staff reports that the patient is responding poorly to behavioral redirection. OBJECTIVE: Mood is anxious. Affect is mood congruent. Thought process shows to be confused and somewhat easily annoyed. The patient is focusing mostly on the behavior of the peers on the unit. The patient denied any hallucinations or delusions. The patient is taking his p.o. medications. The patient's behavior is intrusive with the other patients on the unit. ASSESSMENT AND PLAN: The patient's impulsivity persists. Mood swings and fluctuations are still somewhat of a concern. We will continue to provide supportive psychotherapy to include a simple anxiety reduction skill. We provided boundary awareness and definitions for the patient to be less involved with the other patients on the unit. We provided stress management to assist the patient to increase his frustration tolerance. We provided remotivation for the patient to stay compliant with his medication. We encouraged the patient to demonstrate emotional and self-regulation and to verbalize his concerns to the staff versus acting out towards others. We provided limit setting as well as coping strategies. We will follow up in 2 days to continue the present treatment if the patient remains admitted on the unit. JOB# [id number] [email or web address]
--- NOTE | 2019-05-01 04:41 | Progress Notes ---
DATE: 04/30/2019 PSYCHIATRIC PROGRESS NOTE SUBJECTIVE: Staff was spoken to. The patient is interviewed. Mood is noted to be less irritable. Affect is appropriate. Insight and judgment are noted to be improving. Impulse control is noted to be fair. The patient's mood swings are coming under control. No side effects to the medications are noted. The patient is currently on 400 mg twice a day of Seroquel and is also on Depakote for mood swings. The patient is willing to comply with the treatment. ASSESSMENT: The patient is stabilizing. Possibly, the patient is going to be discharged tomorrow back to [facility]. JOB# [id number]
[2019-05-01] MEDS: INSULIN LISPRO SLIDING SCALE 100 UNITS/ML UNIT SUBQ SCH (07:20)
[2019-05-01] MEDS: Multivitamin Tab PO SCH (08:04)
--- NOTE | 2019-05-01 12:34 | Internal Medicine Prog Note ---
Internal Medicine Subjective - Subjective Patient seen and examined:: with staff, chart reviewed Patient is:: awake, verbal, interactive, in wheelchair Per staff patient has:: no adverse event, no episodes of fall, unstable gait, tolerating meds Internal Medicine Objective - Results Result Diagrams: 04/24/19 19:30 04/24/19 19: Recent Labs: Laboratory Last Values WBC 7.9 Th/cmm (4.8-10.8) 04/24/19: RBC 4.93 Mil/cmm (4.30-5.70) 04/24/19: Hgb 16.0 gm/dL (12-16) 04/24/19: Hct 46.4 % (41.0-60) 04/24/19: MCV 93.9 fl (80-99) 04/24/19: MCH 32.5 pg (26.0-30.0) H 04/24/19: MCHC Differential 34.6 pg (28.0-36.0) 04/24/19: RDW 13.7 % (11.5-20.0) 04/24/19: Plt Count 200 Th/cmm (150-400) 04/24/19: MPV 7.5 fl 04/24/19: Neutrophils % 61.6 % (40.0-80.0) 04/24/19: Lymphocytes % 27.1 % (20.0-50.0) 04/24/19: Monocytes % 8.0 % (2.0-10.0) 04/24/19: Eosinophils % 3.0 % (0.0-5.0) 04/24/19: Basophils % 0.3 % (0.0-2.0) 04/24/19: Sodium 136 mEq/L (136-145) 04/24/19: Potassium 4.1 mEq/L (3.5-5.1) 04/24/19: Chloride 104 mEq/L (98-107) 04/24/19: Carbon Dioxide 25.5 mEq/L (21.0-31.0) 04/24/19: Anion Gap 10.6 (7.0-16.0) 04/24/19 19:30 BUN 19 mg/dL (7-25) 04/24/19 19:30 Creatinine 1.0 mg/dL (0.7-1.3) 04/24/19 19:30 Est GFR ( Amer) > 60.0 ml/min (>90) 04/24/19 19:30 Est GFR (Non-Af Amer) > 60.0 ml/min 04/24/19 19:30 BUN/Creatinine Ratio 19.0 04/24/19 19:30 Glucose 181 mg/dL (70-105) H 04/24/19 19:30 Calcium 10.9 mg/dL (8.6-10.3) H 04/24/19 19:30 Total Bilirubin 0.4 mg/dL (0.3-1.0) 04/24/19 19:30 AST 50 U/L (13-39) H 04/24/19 19:30 ALT 112 U/L (7-52) H 04/24/19 19:30 Alkaline Phosphatase 95 U/L (34-104) 04/24/19 19:30 Total Protein 6.8 gm/dL (6.0-8.3) 04/24/19 19:30 Albumin 3.8 gm/dL (4.2-5.5) L 04/24/19 19:30 Globulin 3.0 gm/dL 04/24/19 19:30 Albumin/Globulin Ratio 1.3 (1.0-1.8) 04/24/19 19:30 Triglycerides 214 mg/dL (<150) H 04/24/19 19:30 Cholesterol 161 mg/dL (<200) 04/24/19 19:30 LDL Cholesterol Direct 118 mg/dL (75-193) 04/24/19 19:30 HDL Cholesterol 30 mg/dL (23-92) 04/24/19 19:30 TSH 2.97 uIU/ml (0.34-5.60) 04/24/19 19:30 Urine Source CLEAN C 04/24/19 19:40 Urine Color YELLOW 04/24/19 19:40 Urine Clarity CLEAR (CLEAR) 04/24/19 19:40 Urine pH 6.0 (4.6 - 8.0) 04/24/19 19:40 Ur Specific [place] >= 1.030 (1.005-1.030) 04/24/19 19:40 Urine Protein NEGATIVE mg/dL (NEGATIVE) 04/24/19 19:40 Urine Glucose (UA) NEGATIVE mg/dL (NEGATIVE) 04/24/19 19:40 Urine Ketones NEGATIVE mg/dL (NEGATIVE) 04/24/19 19:40 Urine Blood NEGATIVE (NEGATIVE) 04/24/19 19:40 Urine Nitrate NEGATIVE (NEGATIVE) 04/24/19 19:40 Urine Bilirubin NEGATIVE (NEGATIVE) 04/24/19 19:40 Urine Urobilinogen 1.0 E.U./dL (0.2 - 1.0) 04/24/19 19:40 Ur Leukocyte Esterase NEGATIVE (NEGATIVE) 04/24/19 19:40 Urine RBC 0-2 /hpf (0-5) H 04/24/19 19:40 Urine WBC 0-2 /hpf (0-5) 04/24/19 19:40 Ur Epithelial Cells NONE SEEN /lpf (FEW) 04/24/19 19:40 Urine Bacteria FEW /hpf (NONE SEEN) 04/24/19 19:40 RPR NONREACTIVE (NONREACTIVE) 04/24/19 19:30 - Physical Exam Vitals and I&O: Vital Signs Temp 98.1 F 04/30/19 14:00 Pulse 92 05/01/19 07:26 Resp 18 05/01/19 07:26 BP 133/60 04/30/19 14:00 Pulse Ox 95 05/01/19 07:26 Intake & Output 04/30/19 05/01/19 05/01/19 18:59 06:59 18:59 Intake Total 1200 Balance 1200 Intake: Oral 1080 Other 120 Other: # Voids 3 # Bowel Movements 0 Active Medications: Current Medications Acetaminophen (Tylenol) 650 mg PO Q4H PRN PRN Reason: Pain Or Fever above 101 Stop: 06/23/19 21:47 Last Admin: 04/26/19 17:40 Dose: 650 mg Acetaminophen/Hydrocodone Bitart ([place] 5mg/325mg) 1 tab PO Q8H PRN PRN Reason: Pain (Severe) Stop: 06/23/19 21:47 Last Admin: 04/28/19 03:42 Dose: 1 tab Al Hydrox/Mg Hydrox/Simethicone (Maalox) 30 ml PO Q6H PRN PRN Reason: Dyspepsia Stop: 06/23/19 21:47 Albuterol Sulfate (Albuterol 2.5mg/3ml Neb Ud) 2.5 mg HHN Q2HRT PRN PRN Reason: Shortness of Breath or Wheeze Stop: 06/23/19 21:47 Dextrose (D50w) 50 ml IVP PRN PRN PRN Reason: BS below 70&not tolerate po Stop: 06/24/19 12:45 Dextrose (Glutose 40%) 18.75 gm PO PRN PRN PRN Reason: BS below 70 & tolerate po Stop: 06/24/19 12:45 Gabapentin (Neurontin) 300 mg PO BID WALTER Stop: 06/24/19 08:59 Last Admin: 05/01/19 08:04 Dose: 300 mg Glucagon (Glucagen) 1 mg IM PRN PRN PRN Reason: BS below 70&dextrose ineffecti Stop: 06/24/19 12:45 Guaifenesin (Robitussin) 200 mg PO Q4HR PRN PRN Reason: Cough or Congestion Stop: 06/23/19 21:47 Insulin Human Lispro (Humalog Insulin Sliding Scale) 0 units SUBQ QDAC WALTER; Protocol Stop: 06/25/19 07:29 Last Admin: 05/01/19 07:20 Dose: Not Given Ipratropium [place] (Atrovent Neb 0.5mg/2.5ml) 0.5 mg HHN Q2HRT PRN PRN Reason: Shortness of Breath or Wheeze Stop: 06/23/19 21:47 [place] Carbonate (Eskalith) 600 mg PO BID WALTER; Protocol Stop: 06/24/19 08:59 Last Admin: 05/01/19 08:04 Dose: 600 mg Lorazepam (Ativan) 1 mg PO Q6H PRN; Protocol PRN Reason: Anxiety/Agitation Stop: 06/23/19 21:47 Magnesium Hydroxide (Milk Of Magnesia) 30 ml PO HS PRN PRN Reason: Constipation Stop: 06/23/19 21:47 Multivitamins/Vitamin C (Theragran) 1 tab PO DAILY WALTER Stop: 06/24/19 08:59 Last Admin: 05/01/19 08:04 Dose: 1 tab Quetiapine Fumarate (Seroquel) 400 mg PO BID AWLTER; Protocol Stop: 06/24/19 08:59 Zolpidem Tartrate (Ambien) 5 mg PO HS PRN PRN Reason: Insomnia Stop: 06/23/19 21:47 General: alert HEENT: NC/AT, PERRLA Neck: Supple Lungs: CTAB Cardiovascular: RRR, Normal S1, Normal S2, without murmur Abdomen: soft, non-tender, non-distended, positive bowel sound Extremities: excoriation Neurological: no change Internal Medicine Assmt/Plan - Assessment Assessment: ASSESSMENT AND PLAN: Diabetes, hypercalcemia, elevated liver function tests, low albumin, psych disorder, obesity, osteoarthritis, chronic pain syndrome. - Plan Plan: PLAN: . We will check the patient's hemoglobin A1c as well as fingerstick ____ once a day. Continue insulin sliding scale. We will monitor the liver function test. We will provide the patient nonsteroidal anti-inflammatory drugs. We will continue to monitor the patient closely with you. Nutritional Asmnt/Malnutr-PDOC - Dietary Evaluation Malnutrition Findings (Please click <Entered> for more info): Nutritional Asmnt/Malnutrition Start: 04/30/19 13: 53 Text: Status: Active Freq: Protocol: Document 04/30/19 13:53 DAVID (Rec: 04/30/19 14:13 DAVID [email or web address]) Nutritional Asmnt/Malnutrition Patient General Information Nutritional Screening Low Risk Diagnosis PSYCHOSIS, NOS Pertinent Medical Hx/Surgical Hx ASTHMA, HIGH BLOOD SUGAR, OBESITY, CHRONIC PAIN SYNDROME , ARTHRITIS Subjective Information PT IS A 54 YEAR OLD MALE ADMITTED WITH AGITATED BEHAVIOR. PER RN, PT STATES HE HAS LOST HIS FRON TEETH DENTURES. ACCORDING TO FAMILY HE IS GETTING NEW ONES. THIS HAS NOT HINDERED HIS BEING ABLE TO EAT, PT EATING 100% OF MEALS PER MEAL/NUTRITION ACTIVITY RECORD. HT: 62 WT: 287 (130.45 KG) IBW: 190, IBW%: 151, ABW: 214 LB. (97.39 KG) BMI: 36.85 (OBESE) GI: WNL, LARGE, ROUND, SOFT, NON-TENDER BM: 04/26 X1 I/O: 2280/NOT NOTED SKIN: WNL, INTACT BLAS: 20 DIET ORDER: MECHANICAL SOFT ESTIMATED ENERGY NEEDS: (ABW, BMI>30) 3275-1652 KCALS (20-25 KCALS/ KG) 78-88 G PRO (0.8-0.9 G/KG) 0256-8641 ML FLUIDS (35-40 ML/ KG) PT PO INTAKE: 100%, PER MEAL/ NUTRITION ACTIVITY RECORD DIETARY IS CURRENTLY PROVIDING AN ESTIMATED 2565 KCALS AND 154 GM PRO, TO MEET 100%+ KCAL AND 100%+ PRO NEEDS. Current Diet Order/ Nutrition Support MECHANICAL SOFT Pertinent Medications MAALOX (PRN), ALBUTEROL (PRN), D50W (PRN), GLUTOSE 40% (PRN) , GLUCAGON (PRN), INS-SS, MOM 9PRN), THEREGRAN Pertinent Labs 04/24: GLUC 181, CA 10.9, AST 50, ALT 112, ALB 3.8 Nutritional Hx/Data Height 1.88 m Height (Calculated Centimeters) 188.0 Current Weight (lbs) 130.181 kg Weight (Calculated Kilograms) 130.2 Weight (Calculated Grams) 058475.0 [place] Body Weight 190 % [place] Body Weight 151 Body Mass Index (BMI) 36.8 Weight Status Obese GI Symptoms GI Symptoms None Last BM 04/26 X1 Skin Integrity/Comment: WNL, INTACT Current %PO Good (75-100%) Estimated Nutritional Goals BEE in Kcals: Adj wt of IBW Calories/Kcals/Kg 20-25 Kcals Calculated 2198-8629 Protein: Adj wt of IBW Protein g/k.8-0.9 Protein Calculated 78-88 Fluid: ml 1452-6164 ML FLUIDS (35-40 ML/ KG) Nutritional Problem 1. Problem Problem ALTERED NUTRITION RELATED LABS Etiology R/T ENDOCRINE DYSFUNCTION Signs/Symptoms: GLUC 181 Malnutrition Related to Morbid Obesity Malnutrition related to morbid obesity No Intervention/Recommendation Comments 1.CONTINUE MECHANICAL SOFT DIET ORDERED. 2. MONITOR PO INTAKE, NUTRITION RELATED LABS, AND SKIN INTEGRITY. Expected Outcomes/Goals Expected Outcomes/Goals 1. BLOOD GLUCOSE LEVELS TO TREND WNL. 2. PO INTAKE TO CONTINUE TO MEET >75% ESTIMATED NUTRITIONAL NEEDS. 3. F/U LOW RISK IN 7 DAYS, 05/07
--- NOTE | 2019-05-02 04:19 | Progress Notes ---
DATE: 05/01/2019 PSYCHIATRIC PROGRESS NOTE SUBJECTIVE: "I'm doing much better." The patient is alert and oriented. Mood is noted to be anxious. Affect is appropriate. The patient is not suicidal or homicidal. Insight and judgment are noted to be improving. Impulse control is noted to be fair. No major side effects to the medications are noted. ASSESSMENT: The patient is stabilizing. PLAN: To discharge the patient back to [facility] for further followup by Dr. Rajat Ceballos. [facility]# [id number]
--- NOTE | 2019-05-03 19:23 | Discharge Summary ---
DATE OF DISCHARGE: 05/01/2019 IDENTIFYING DATA: The patient is a 54-year-old male, resident of [facility]. JUSTIFICATION OF HOSPITALIZATION: The patient is admitted for acute agitation and aggressive behavior. CHIEF COMPLAINT: "I don't understand why I need to be here." DIAGNOSES AT THE TIME OF ADMISSION: AXIS I: Schizoaffective disorder, bipolar type. AXIS II: None. AXIS III: As per Dr. Lloyd. HISTORY OF PRESENT ILLNESS: Please refer to 04/25/2019 dictation done by me. Physical examination was done by Dr. Lloyd. Blood work done at the time of hospitalization has been reviewed by him. HOSPITAL COURSE AND RESPONSE TO TREATMENT: Please refer to the below. The patient has been closely monitored on inpatient unit, provided with supportive psychotherapy. The patient has been started on the Seroquel for his impulse control problems that was increased up to 400 mg twice a day. The patient did not want to take his Risperdal that was discontinued. The patient also has been placed on lithium carbonate, which was given 600 mg twice a day. With these medications, the patient has been observed and aggressive behavior started to come under control. No side effects to the medications are noted and the patient was finally discharged with recommendation that he is going to be seeking treatment on an outpatient basis by Dr. Ceballos. MENTAL STATUS EXAMINATION: At the time of discharge is noted to be stable. The patient is not presenting with any psychotic symptoms and no behavioral problems are noted at the time of the discharge. CONDITION AT THE TIME OF DISCHARGE: Has been noted to be stable. PROGNOSIS: At the time of discharge noted to be fair with the treatment. [facility]# [id number]
== END 2019-05-01 17:00 | DRG 885 ==
LOC: ER 18:15 → GERO2 20:10
DX: F25.0 Schizoaffective disorder, bipolar type (principal); G62.9 Polyneuropathy, unspecified; F17.210 Nicotine dependence, cigarettes, uncomplicated; J45.909 Unspecified asthma, uncomplicated; E66.9 Obesity, unspecified; G89.4 Chronic pain syndrome; M19.90 Unspecified osteoarthritis, unspecified site; E11.9 Type 2 diabetes mellitus without complications; E83.52 Hypercalcemia; F29 Unspecified psychosis not due to a substance or known physiological condition; F41.9 Anxiety disorder, unspecified; Z68.36 Body mass index [BMI] 36.0-36.9, adult
CPT/HCPCS: 36415-UA; 80053-TC; 80061-TC; 81001-TC; 83036-90; 84443-TC; 85025-TC; 86592-TC; 93005; 94760; G0410; Z7610